=== PATIENT | male | born 1965 | race Caucasian/White ===

== ENCOUNTER 2016-03-09 14:06 | Emergency (ER) | payer SELFPAY ==
--- NOTE | 2016-03-09 14:22 | ER Document Report ---
ED Medical Screen (RME) - General Stated Complaint: LOW BACK PAIN, NECK PAIN Mode of Arrival: Ambulatory Information source: Patient Notes: Patient presents to the emergency department with complete back pain for the past 4 days with his feet tingling. Denies urinary or bowel incontinence or retention. He reports his back hurts on and off. Denies injury, denies heavy lifting. Patient was buzz Medeiros. I have greeted and performed a rapid initial assessment of this patient. A comprehensive ED assessment and evaluation of the patient, analysis of test results and completion of the medical decision making process will be conducted by additional ED providers. TRAVEL OUTSIDE OF THE [place] IN LAST 30 DAYS: No - Related Data Allergies/Adverse Reactions: Penicillins Allergy (Verified 09/22/15 10:11) Past Medical History - Past Medical History Cardiac Medical History: Reports: Hx Heart Attack - X4, Hx Hypercholesterolemia , Hx Hypertension Past Surgical History: Reports: Hx Cardiac Surgery - stents X 10 - Immunizations Immunizations up to date: No Hx Diphtheria, Pertussis, Tetanus Vaccination: No Physical Exam - Vital signs Vitals: Temp Pulse Resp BP Pulse Ox 97.3 F 83 18 149/74 H 99 03/09/16 14:16 03/09/16 14:16 03/09/16 14:16 03/09/16 14:16 03/09/16 14:16 Course - Vital Signs Vital signs: Temp Pulse Resp BP Pulse Ox 97.3 F 83 18 149/74 H 99 03/09/16 14:16 03/09/16 14:16 03/09/16 14:16 03/09/16 14:16 03/09/16 14:16
--- NOTE | 2016-03-09 15:07 | ER Document Report ---
HPI - HPI Patient complains to provider of: low back pain Onset: Other - chronic but worse for a few days Onset/Duration: Gradual Quality of pain: Throbbing Pain Level: 5 Context: 50 yo male with chronic back pain is c/o worsening midline low back pain and now midline cervical neck pain, worse with movement. He is also c/o tingling to the soles of both feet and cold left hand. No fever or chills. No injury. No saddle anesthesia. No hx diabetes or neurological disease. No headache. Hx coronary stents, no chest pain or SOB, no surgical procedure in left arm. Associated Symptoms: None Exacerbated by: Movement Relieved by: Denies Similar symptoms previously: Yes Recently seen / treated by doctor: No - ROS ROS below otherwise negative: Yes Systems Reviewed and Negative: Yes All other systems reviewed and negative - DERM Skin Color: Normal Past Medical History - General Information source: Patient - Social History Smoking Status: Current Every Day Smoker Chew tobacco use (# tins/day): No Frequency of alcohol use: None Drug Abuse: None Lives with: Spouse/Significant other Family History: Reviewed & Not Pertinent Patient has suicidal ideation: No Patient has homicidal ideation: No - Past Medical History Cardiac Medical History: Reports: Hx Heart Attack - X4, Hx Hypercholesterolemia , Hx Hypertension Past Surgical History: Reports: Hx Cardiac Surgery - stents X 10 - Immunizations Immunizations up to date: No Hx Diphtheria, Pertussis, Tetanus Vaccination: No Vertical Provider Document - CONSTITUTIONAL Agree With Documented VS: Yes Exam Limitations: No Limitations General Appearance: No Apparent Distress - INFECTION CONTROL TRAVEL OUTSIDE OF THE [place] IN LAST 30 DAYS: No - HEENT HEENT: Normocephalic - NECK Neck: Supple. negative: Lymphadenopathy-Left, Lymphadenopathy-Right - RESPIRATORY Respiratory: Breath Sounds Normal, No Respiratory Distress O2 Sat by Pulse Oximetry: 99 - CARDIOVASCULAR Cardiovascular: Regular Rate, Regular Rhythm - GI/ABDOMEN Gastrointestinal: Abdomen Soft, Abdomen Non-Tender - BACK Back: Normal Inspection Notes: tender midline lumbar spine and lower cervical spine. - MUSCULOSKELETAL/EXTREMETIES Musculoskeletal/Extremeties: MAEW, FROM, Non-Tender, No Edema Notes: left hand is cooler than right, dorsal left foot is cooler than right. Cap refill, pulses, and strength are all normal bilateral arms,hands, legs, feet. - NEURO Level of Consciousness: Awake, Alert Motor/Sensory: No Motor Deficit, No Sensory Deficit - DERM Integumentary: Warm, Dry, No Rash Course - Re-evaluation Re-evalutation: 03/09/16 16:00 dr valenzuela evaluated the pt., add chest xray to the labs I ordered. No other testing needed. have pt follow up with dr francisco tomorrow 03/09/16 17:[address] valenzuela, pt ok to be discharged and f/u with dr francisco tomorrow. - Vital Signs Vital signs: Temp Pulse Resp BP Pulse Ox 97.3 F 83 18 149/74 H 99 03/09/16 14:16 03/09/16 14:16 03/09/16 14:16 03/09/16 14:16 03/09/16 14:16 - Laboratory Result Diagrams: 03/09/16 16:35 03/09/16 16:35 Discharge - Discharge Clinical Impression: Neck pain, parathesia, left hand and left foot coolness Chronic low back pain Qualifiers: Back pain laterality: midline Sciatica presence: without sciatica Qualified Code(s): M54.5 - Low back pain Condition: Good Disposition: HOME, SELF-CARE Instructions: Warm Packs ([facility]), Low Back Pain ([facility]), Numbness or Paresthesia ( [facility]), Acetaminophen, Use of [id number] Ibuprofen ([facility]) Additional Instructions: warm compress to sore areas Prescriptions: Ibuprofen [Motrin 800 mg Tablet] 800 mg PO Q8HP PRN #30 tablet PRN Reason: Forms: Return to Work Referrals: LIANNA TRAN MD [NO LOCAL MD] - Follow up tomorrow
[2016-03-09 17:02] LABS: ABSOLUTE BASOPHILS # (AUTO) 0.1 10^3/uL (0.0-0.2); ABSOLUTE EOSINOPHILS # (AUTO) 0.3 10^3/uL (0.0-0.6); ABSOLUTE LYMPHOCYTES (AUTO) 3.5 10^3/uL (0.5-4.7); ABSOLUTE MONOCYTES (AUTO) 0.9 10^3/uL (0.1-1.4); ABSOLUTE NEUT (AUTO) 6.6 10^3/uL (1.7-8.2); BASOPHILS % (AUTO) 1.2 % (0-2); EOSINOPHILS % (AUTO) 2.7 % (0-6); HEMATOCRIT 47.5 % (37.9-51.0); HEMOGLOBIN 15.2 g/dL (13.5-17.0); HGB HCT DIFFERENCE -1.9; LYMPHOCYTES % (AUTO) 30.4 % (13-45); MEAN CORPUSCULAR HEMOGLOBIN 29.6 pg (27.0-33.4); MEAN CORPUSCULAR VOLUME 92 fl (80-97); RED BLOOD COUNT 5.14 10^6/uL (4.35-5.55); RED CELL DISTRIBUTION WIDTH 13.2 % (11.5-14.0); SEGMENTED NEUTROPHILS % (AUTO) 57.7 % (42-78); WHITE BLOOD COUNT 11.5 10^3/uL (4.0-10.5)
[2016-03-09 17:21] LABS: ALANINE AMINOTRANSFERASE 27 U/L (21-72); ALKALINE PHOSPHATASE 56 U/L (38-126); ANION GAP 9 (5-19); ASPARTATE AMINO TRANSFERASE 17 U/L (17-59); BILIRUBIN,TOTAL 0.5 mg/dL (0.2-1.3); BLOOD UREA NITROGEN 14 mg/dL (7-20); CALCIUM 10.2 mg/dL (8.4-10.2); CARBON DIOXIDE 32 mmol/L (22-30); CHLORIDE 104 mmol/L (98-107); CREATININE RESULT 1.16 mg/dL (0.52-1.25); GLUCOSE 52 mg/dL (75-110); POTASSIUM 4.6 mmol/L (3.6-5.0); SODIUM 144.8 mmol/L (137-145)
--- NOTE | 2016-03-09 17:28 | ER Document Report ---
Doctor's Note Notes: 03/09/16 17:26 The patient independently seen and examined by myself. DECISION made by staff. [id number] male presented low back pain intermittently for months for the past 2 days as also had posterior neck pain and this morning noted a coolness to his left hand. Mid-level provider also identified coolness in the patient's left foot which patient was unaware of. 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 Reports history of multiple cardiac stents but denies any chest pain short of breath diaphoresis or nausea recently. Skin warm and dry Patient he knows of atraumatic Neck supple trachea midline no adenopathy no nuchal rigidity no bony deformities palpated Chest nontender to palpation Extremities have 2+ pulses radial process pedis posterior tibial bilaterally. He has 2 second capillary refill all 4 extremities. There is a minimal decrease in temperature diffusely involving the left hand compared to the right and I do not appreciate any difference in temperatures in the feet. He has no Homans sign bilaterally he has no edema to any extremity. Chemistries all active range of motion all joints without apparent discomfort. Range of motion testing the left upper extremity does not produce any pain or worsen the patient 's sensation of coolness in his hand.
[2016-03-09] MEDS ORDERED: ACETAMINOPHEN 325 MG TABLET PO ONE (17:32)
[2016-03-09] MEDS ORDERED: IBUPROFEN 800 MG TABLET PO ONE (17:32)
[2016-03-09 18:36] VITALS: BP 164/88
== END 2016-03-09 18:10 | disposition home or self-care (01) ==
LOC: ER 14:06
DX: M54.2 Cervicalgia (principal); R22.0 Localized swelling, mass and lump, head; M54.5 Low back pain; F17.210 Nicotine dependence, cigarettes, uncomplicated
CPT/HCPCS: 36415; 71020; 80053; 85025; 99283

== ENCOUNTER 2016-06-24 13:47 | Observation (INO) | payer SELFPAY ==
[2016-06-24] MEDS ORDERED: ASPIRIN 81 MG TABLET, CHEWABLE PO ONE (13:50)
--- NOTE | 2016-06-24 14:18 | ER Document Report ---
ED Medical Screen (RME) - General Chief Complaint: Chest Pain Stated Complaint: CHEST PAIN, ELEVATED BLOOD PRESSURE Notes: Patient presents with left-sided chest pain that has been present for the past 5 hours. Patient has a long-standing history of known cardiac disease with 10 stents in the past as well as for known MIs. He continues to have left-sided chest pain at this time. No radiation to pain. No associated diaphoresis, nausea, vomiting or shortness of breath. No history of DVT or pulmonary embolus. EKG obtained in triage does not show any acute ST elevation. I have greeted and performed a rapid initial assessment of this patient. A comprehensive ED assessment and evaluation of the patient, analysis of test results and completion of medical decision making process will be conducted by an additional ED providers. TRAVEL OUTSIDE OF THE [place] IN LAST 30 DAYS: No - Related Data Allergies/Adverse Reactions: Penicillins Allergy (Verified 06/24/16 14:16) Past Medical History - Past Medical History Cardiac Medical History: Reports: Hx Heart Attack - X4, Hx Hypercholesterolemia , Hx Hypertension Renal/ Medical History: Denies: Hx Peritoneal Dialysis Past Surgical History: Reports: Hx Cardiac Surgery - stents X 10 - Immunizations Immunizations up to date: No Hx Diphtheria, Pertussis, Tetanus Vaccination: No Physical Exam - Vital signs Notes: PHYSICAL EXAMINATION: GENERAL: Well-appearing, well-nourished and in no acute distress. HEAD: Atraumatic, normocephalic. EYES: Pupils equal round and reactive to light, extraocular movements intact, sclera anicteric, conjunctiva are normal. ENT: nares patent, oropharynx clear without exudates. Moist mucous membranes. NECK: Normal range of motion, supple without lymphadenopathy LUNGS: Breath sounds clear to auscultation bilaterally and equal. No wheezes rales or rhonchi. HEART: Regular rate and rhythm without murmurs ABDOMEN: Soft, nontender, normoactive bowel sounds. No guarding, no rebound. No masses appreciated. EXTREMITIES: Normal range of motion, no pitting or edema. No cyanosis. NEUROLOGICAL: No focal neurological deficits. Moves all extremities spontaneously and on command. PSYCH: Normal mood, normal affect. SKIN: Warm, Dry, normal turgor, no rashes or lesions noted.
[2016-06-24 14:54] LABS: ABSOLUTE BASOPHILS # (AUTO) 0.1 10^3/uL (0.0-0.2); ABSOLUTE EOSINOPHILS # (AUTO) 0.4 10^3/uL (0.0-0.6); ABSOLUTE LYMPHOCYTES (AUTO) 3.6 10^3/uL (0.5-4.7); ABSOLUTE MONOCYTES (AUTO) 0.7 10^3/uL (0.1-1.4); ABSOLUTE NEUT (AUTO) 6.9 10^3/uL (1.7-8.2); BASOPHILS % (AUTO) 0.9 % (0-2); EOSINOPHILS % (AUTO) 3.4 % (0-6); HEMATOCRIT 45.3 % (37.9-51.0); HEMOGLOBIN 15.1 g/dL (13.5-17.0); LYMPHOCYTES % (AUTO) 30.9 % (13-45); MEAN CORPUSCULAR HEMOGLOBIN 29.8 pg (27.0-33.4); MEAN CORPUSCULAR HGB CONC 33.3 g/dL (32.0-36.0); MEAN CORPUSCULAR VOLUME 90 fl (80-97); MONOCYTES % (AUTO) 5.6 % (3-13); RED BLOOD COUNT 5.05 10^6/uL (4.35-5.55); SEGMENTED NEUTROPHILS % (AUTO) 59.2 % (42-78); WHITE BLOOD COUNT 11.7 10^3/uL (4.0-10.5)
[2016-06-24] MEDS ORDERED: ACETAMINOPHEN 325 MG TABLET PO ONE (14:56)
--- NOTE | 2016-06-24 15:04 | ER Document Report ---
ED General - General Chief Complaint: Chest Pain Stated Complaint: CHEST PAIN, ELEVATED BLOOD PRESSURE Time seen by provider: 14:59 Mode of Arrival: Ambulatory Information source: Patient Notes: 50-year-old male who reports left lower chest pressure nonradiating beginning at rest about 9:00 this morning. He also had a sensation of his face feeling swollen and flushed which she says is typical for his blood pressure running high. He went to see his pharmacist and says his blood pressure was 199 of 119 and he was told that person come to the emergency department. He reports a history of 4 MIs and she'll obtain cardiac stents and he says the chest discomfort he has now is typical 40s had in the past with heart problems. He reports some associated shortness of breath but denies diaphoresis or vomiting. He reports he had some nausea with the chest discomfort briefly this morning without is not resolved. He reports chest pain and is worse with 4 out of 10 and currently is 2 out of 10. Patient reports he has not had any type of cardiac workup since his last CT in 2011 and is intermittently had twinges of chest discomfort since then but not as bad as when is having now he doesn't think his prior episodes of chest pain becoming more frequently. He reports his prior cardiac workup and cares been at [facility] and he has not seen anybody in 5 years for his heart. He also reports history of atrial fibrillation for which she takes amiodarone. Primary care physician is Dr. Ritesh Lofton. He reports he has been in his normal state of health otherwise recently Physical Exam: General: Alert, appears well. HEENT: Normocephalic. Atraumatic. PERRLA. Extraocular movements intact. Oropharynx clear. Neck: Supple. Non-tender. Respiratory: No respiratory distress. Clear and equal breath sounds bilaterally. The patient does not reproduce patient's pain Cardiovascular: Regular rate and rhythm. No murmur or rub Abdominal: Normal Inspection. Soft, non-tender. No distension. Normal Bowel Sounds. Back: Non-tender. No deformity or step off. Extremities all warm to plus pulses of cyanosis no edema no Homans sign Neurological: Speech clear mentation normal tint layer strength 5 out of 5 and equal both upper extremities motor function 5 out of 5 and equal to both lower extremities Psychological: Normal affect. Normal Mood. Skin: Warm. Dry. Normal color. TRAVEL OUTSIDE OF THE [place] IN LAST 30 DAYS: No - Related Data Allergies/Adverse Reactions: Penicillins Allergy (Verified 06/24/16 14:16) Past Medical History - Social History Smoking Status: Current Every Day Smoker Frequency of alcohol use: None Family History: CAD - Multiple family members with early onset coronary disease Patient has suicidal ideation: No Patient has homicidal ideation: No - Past Medical History Cardiac Medical History: Reports: Hx Heart Attack - X4, Hx Hypercholesterolemia , Hx Hypertension Renal/ Medical History: Denies: Hx Peritoneal Dialysis Past Surgical History: Reports: Hx Cardiac Surgery - stents X 10 - Immunizations Immunizations up to date: No Hx Diphtheria, Pertussis, Tetanus Vaccination: No Review of Systems - Review of Systems Constitutional: denies: Chills, Fever, Weakness EENT: denies: Ear pain, Nose pain, Throat pain Cardiovascular: See HPI. denies: Palpitations Respiratory: denies: Cough Gastrointestinal: denies: Abdominal pain, Diarrhea, Vomiting, Blood in vomit, Black stools, Rectal bleeding Genitourinary: denies: Burning, Dysuria Musculoskeletal: Back pain - Chronic not worse than baseline. denies: Leg swelling Skin: denies: Rash Hematologic/Lymphatic: denies: Swollen glands Neurological/Psychological: denies: Weakness, Numbness Physical Exam - Vital signs Vitals: Temp Pulse Resp BP Pulse Ox 98 F 77 20 163/98 H 93 06/24/16 14:17 06/24/16 14:17 06/24/16 14:17 06/24/16 14:17 06/24/16 14:17 Course - Re-evaluation Re-evalutation: 06/24/16 15:42 Reevaluation shows patient to be pain free after 2 sublingual nitroglycerin with a markedly improved blood pressure. Given the patient's report of worsening chest pain recently think this warrants at a minimum stress testing in the inpatient setting. I discussed case with Dr. Haque of the hospitalist service and he accepts the patient for admission - Vital Signs Vital signs: Temp Pulse Resp BP Pulse Ox 98 F 77 20 163/98 H 100 06/24/16 14:17 06/24/16 14:17 06/24/16 14:17 06/24/16 14:17 06/24/16 15:10 - Laboratory Result Diagrams: 06/24/16 14:25 06/24/16 14:25 Laboratory results interpreted by me: 06/24/16 14:25 WBC 11.7 H - Diagnostic Test Radiology reviewed: Image reviewed, Reports reviewed - EKG Interpretation by Me Additional EKG results interpreted by me: 06/24/16 15:03 EKG reviewed by myself shows sinus rhythm at 72 old Q waves consistent with old inferior CT no acute changes Discharge - Discharge Clinical Impression: Acute coronary syndrome Condition: Fair Disposition: ADMITTED OBSERVATION Admitting Provider: Hospitalist Unit Admitted: Telemetry
[2016-06-24] MEDS: NITROGLYCERIN 0.4 MG/TAB 25 TAB/BOTTLE SL PRN ×2 (15:07→15:17)
[2016-06-24 15:14] LABS: ALANINE AMINOTRANSFERASE 32 U/L (21-72); ALBUMIN 4.3 g/dL (3.5-5.0); ALKALINE PHOSPHATASE 60 U/L (38-126); ANION GAP 13 (5-19); ASPARTATE AMINO TRANSFERASE 18 U/L (17-59); BILIRUBIN,DIRECT 0.3 mg/dL (0.0-0.4); BILIRUBIN,TOTAL 0.4 mg/dL (0.2-1.3); BLOOD UREA NITROGEN 14 mg/dL (7-20); CALCIUM 9.9 mg/dL (8.4-10.2); CARBON DIOXIDE 26 mmol/L (22-30); CHLORIDE 105 mmol/L (98-107); CREATINE KINASE 103 U/L (55-170); CREATININE RESULT 1.13 mg/dL (0.52-1.25); GLUCOSE 91 mg/dL (75-110); LIPASE 161.5 U/L (23-300); POTASSIUM 4.1 mmol/L (3.6-5.0); SODIUM 143.7 mmol/L (137-145); TOTAL PROTEIN 7.3 g/dL (6.3-8.2)
[2016-06-24 15:28] LABS: TROPONIN I < 0.012 ng/mL
[2016-06-24] MEDS ORDERED: ACETAMINOPHEN 325 MG TABLET PO PRN (16:11)
--- NOTE | 2016-06-24 16:25 | PDOC H&P ---
History of Present Illness Admission Date/PCP: Date of admission is 06/24/2016. Primary care is Dr. Quiroga Patient complains of: Chest pain History of Present Illness: DILIP TAVAREZ is a 50 year old male with known history of coronary artery disease with multiple stent placement who presents with a 2 day history of chest pain. He reports that he began having chest pain 2 days ago and reported that it was about 4 out of 10. Spent intermittent in nature and occurs with exertion and at rest. He went to the pharmacist today and was found to have a blood pressure 199/19. He was instructed to come to the emergency room. He was given nitroglycerin in the merchant with relief of his chest pain. The patient is currently pain-free. He reports that initially was 4 out of 10 and now is 0 out of 10. He did not have any associated nausea vomiting or diaphoresis. Denies any palpitations or tachycardia. He describes the pain as a pressure in the left substernal area. It does not radiate. He denies any orthopnea or PND. Denies any palpitations or tachycardia but does relate a history of atrial fibrillation. He reports that he has been compliant with his medications. Past Medical History Cardiac Medical History: Reports: Atrial Fibrillation, Myocardial Infarction - X4, Hyperlipidema, Hypertension Pulmonary Medical History: Reports: None EENT Medical History: Reports: None Neurological Medical History: Reports: None Endocrine Medical History: Reports: None Renal/ Medical History: Reports: None Malignancy Medical History: Reports: None GI Medical History: Reports: None Musculoskeltal Medical History: Reports: None Skin Medical History: Reports: None Psychiatric Medical History: Reports: None Traumatic Medical History: Reports: None Hematology: Reports: None Infectious Medical History: Reports: None Past Surgical History Past Surgical History: Reports: Cardiac Catheterization, Coronary Stent Social History Information Source: Patient Lives with: Spouse/Significant other Smoking Status: Current Every Day Smoker Frequency of Alcohol Use: None Hx Recreational Drug Use: No Drugs: None Hx Prescription Drug Abuse: No - Advance Directive Resuscitation Status: Full Code Surrogate healthcare decision maker:: Family History Family History: CAD - Multiple family members with early onset coronary disease Family History: Father at age 55 from coronary artery disease. Mother at age 62 with ovarian cancer but did have coronary artery disease also. Parental Family History Reviewed: Yes Children Family History Reviewed: No Sibling(s) Family History Reviewed.: No Medication/Allergy Allergies/Adverse Reactions: Penicillins Allergy (Verified 06/24/16 14:16) Review of Systems Constitutional: PRESENT: weight loss - Reports unintentional 25 pound weight loss of the last 6 months.. ABSENT: chills, fever(s), headache(s) Eyes: ABSENT: visual disturbances Ears: ABSENT: hearing changes Cardiovascular: PRESENT: as per HPI Respiratory: ABSENT: cough, hemoptysis Gastrointestinal: ABSENT: abdominal pain, constipation, diarrhea, hematemesis, hematochezia, nausea, vomiting Genitourinary: ABSENT: dysuria, hematuria Musculoskeletal: ABSENT: joint swelling Integumentary: ABSENT: rash, wounds Neurological: ABSENT: abnormal gait, abnormal speech, confusion, dizziness, focal weakness, syncope Psychiatric: ABSENT: anxiety, depression Endocrine: ABSENT: cold intolerance, heat intolerance, polydipsia, polyuria Hematologic/Lymphatic: ABSENT: easy bleeding, easy bruising Physical Exam Vital Signs: Temp Pulse Resp BP Pulse Ox 98 F 77 20 163/98 H 100 06/24/16 14:17 06/24/16 14:17 06/24/16 14:17 06/24/16 14:17 06/24/16 15:10 Intake & Output 06/23/16 06/24/16 06/25/16 06:59 06:59 06:59 Weight 76 kg General appearance: PRESENT: no acute distress, well-developed, well-nourished Head exam: PRESENT: atraumatic, normocephalic Eye exam: PRESENT: conjunctiva pink, EOMI, PERRLA. ABSENT: scleral icterus Ear exam: PRESENT: normal external ear exam Mouth exam: PRESENT: moist, tongue midline Neck exam: ABSENT: carotid bruit, JVD, lymphadenopathy, thyromegaly Respiratory exam: PRESENT: clear to auscultation jono. ABSENT: rales, rhonchi, wheezes Cardiovascular exam: PRESENT: RRR. ABSENT: diastolic murmur, rubs, systolic murmur Vascular exam: PRESENT: normal capillary refill GI/Abdominal exam: PRESENT: normal bowel sounds, soft. ABSENT: distended, guarding, mass, organolmegaly, rebound, tenderness Rectal exam: PRESENT: deferred Extremities exam: ABSENT: calf tenderness, clubbing, pedal edema Neurological exam: PRESENT: alert, awake, oriented to person, oriented to place , oriented to time, oriented to situation, CN II-XII grossly intact. ABSENT: motor sensory deficit Psychiatric exam: PRESENT: appropriate affect, normal mood Skin exam: PRESENT: dry, intact, warm, other - Large nevus on right anterior chest just below the clavicle approximately 2 inches in diameter. ABSENT: cyanosis, rash Results Laboratory Results: 06/24/16 14:25 06/24/16 14:25 06/24/16 06/24/16 14:25 14:25 WBC 11.7 H RBC 5.05 Hgb 15.1 Hct 45.3 MCV 90 MCH 29.8 MCHC 33.3 RDW 13.0 Plt Count 321 Seg Neutrophils % 59.2 Lymphocytes % 30.9 Monocytes % 5.6 Eosinophils % 3.4 Basophils % 0.9 Absolute Neutrophils 6.9 Absolute Lymphocytes 3.6 Absolute Monocytes 0.7 Absolute Eosinophils 0.4 Absolute Basophils 0.1 Sodium 143.7 Potassium 4.1 Chloride 105 Carbon Dioxide 26 Anion Gap 13 BUN 14 Creatinine 1.13 Est GFR ( Amer) > 60 Est GFR (Non-Af Amer) > 60 Glucose 91 Calcium 9.9 Magnesium 2.0 Total Bilirubin 0.4 AST 18 ALT 32 Alkaline Phosphatase 60 Total Protein 7.3 Albumin 4.3 Lipase 161.5 06/24/16 06/24/16 14:25 14:25 Creatine Kinase 103 CK-MB (CK-2) 0.40 Troponin I < 0.012 NT-Pro-B Natriuret Pep 100 Impressions: Chest X-Ray 06/24/16 13:50 IMPRESSION: NO ACUTE RADIOGRAPHIC FINDING IN THE CHEST. Assessment & Plan - Diagnosis (1) Acute coronary syndrome Is this a current diagnosis for this admission?: YesPlan: he presented with his usual type chest pain associated with his coronary artery disease. He has not seen a health outreach worker in over 2 years. We will admit and monitor serial cardiac enzymes. If his enzymes are negative we will Get an exercise stress test. We'll continue with aspirin daily. He also is on Imdur. (2) Hypertension Is this a current diagnosis for this admission?: YesPlan: Continue with the Coreg and lisinopril and Lasix. (3) Atrial fibrillation Is this a current diagnosis for this admission?: YesPlan: The patient is on amiodarone and is in a regular rhythm currently. (4) Restless leg syndrome Is this a current diagnosis for this admission?: YesPlan: Continue the gabapentin daily at bedtime - Time Time Spent: 50 to 70 Minutes - Plan Summary Plan Summary: Patient is admitted as an observation.
[2016-06-24] MEDS ORDERED: NITROGLYCERIN 0.4 MG/TAB 25 TAB/BOTTLE SL PRN (16:30)
[2016-06-24] MEDS ORDERED: GABAPENTIN 300 MG CAPSULE PO ONE (17:00)
--- NOTE | 2016-06-24 19:08 | EKG REPORT ---
SEVERITY:- ABNORMAL ECG - SINUS RHYTHM NONSPECIFIC INTRAVENTRICULAR CONDUCTION DELAY INFERIOR INFARCT, AGE INDETERMINATE : Confirmed by: Oliver Miller MD 24-Jun-2016 19:07:14
[2016-06-24 21:09] LABS: CREATINE KINASE MB 0.41 ng/mL (<4.55)
[2016-06-24 21:14] LABS: TROPONIN I < 0.012 ng/mL
[2016-06-24] MEDS ORDERED: CARVEDILOL 6.25 MG TABLET PO SCH (22:00)
[2016-06-25 03:16] LABS: CREATINE KINASE MB 0.41 ng/mL (<4.55)
[2016-06-25 03:17] LABS: TROPONIN I < 0.012 ng/mL
[2016-06-25 07:57] VITALS: BP 148/90
[2016-06-25] MEDS ORDERED: AMIODARONE HCL 200 MG TABLET PO SCH (10:00)
[2016-06-25] MEDS ORDERED: GABAPENTIN 300 MG CAPSULE PO SCH (10:00)
[2016-06-25] MEDS ORDERED: ASPIRIN 325 MG TABLET, ENT COATED PO SCH (10:00)
[2016-06-25] MEDS ORDERED: LISINOPRIL 10 MG TABLET PO SCH (10:00)
[2016-06-25] MEDS ORDERED: ISOSORBIDE MONONITRATE 30 MG TAB.ER.24H PO SCH (10:00)
[2016-06-25] MEDS ORDERED: FUROSEMIDE 20 MG TABLET PO SCH (10:00)
--- NOTE | 2016-06-25 10:23 | PDOC DISCHARGE SUMMARY ---
General - Admit/Disc Date/PCP Admission Date/Primary Care Provider: 06/24/16 16:11 Discharge Date: 06/25/16 - Discharge Diagnosis (1) Acute coronary syndrome Is this a current diagnosis for this admission?: YesSummary: Patient had negative troponins and has had no further chest pain. It is Monday and we are unable to give a stress test today. Patient follow-up with Dr. Ayala as an outpatient and have a stress test set up. Patient will increase his Imdur to twice a day 30 mg. (2) Hypertension Is this a current diagnosis for this admission?: Yes (3) Atrial fibrillation Is this a current diagnosis for this admission?: Yes (4) Restless leg syndrome Is this a current diagnosis for this admission?: Yes - Additional Information Resuscitation Status: Full Code Discharge Diet: Cardiac Discharge Activity: Activity As Tolerated Home Medications: Amiodarone HCl [Cordarone 200 mg Tablet] 200 mg PO DAILY 06/24/16 Aspirin [Ecotrin 325 mg EC Tablet] 325 mg PO DAILY 06/24/16 Carvedilol [Coreg 6.25 mg Tablet] 6.25 mg PO Q12 06/24/16 Furosemide [Lasix] 20 mg PO DAILY 06/24/16 Gabapentin [Neurontin 300 mg Capsule] 600 mg PO QPM 06/24/16 Lisinopril [Prinivil] 40 mg PO DAILY 06/24/16 Isosorbide Mononitrate [Isosorbide Mononitrate ER] 30 mg PO BID #60 tab.er.24h 06/25/16 Nitroglycerin [Nitrostat 0.4 mg (1/150 Gr) Tabs 25/Bottle] 1 tab SL ASDIR PRN # 1 bottle 06/25/16 History of Present Illness History of Present Illness: DILIP TAVAREZ is a 50 year old male with known history of coronary artery disease with multiple stent placement who presents with a 2 day history of chest pain. He reports that he began having chest pain 2 days ago and reported that it was about 4 out of 10. Spent intermittent in nature and occurs with exertion and at rest. He went to the pharmacist today and was found to have a blood pressure 199/19. He was instructed to come to the emergency room. He was given nitroglycerin in the merchant with relief of his chest pain. The patient is currently pain-free. He reports that initially was 4 out of 10 and now is 0 out of 10. He did not have any associated nausea vomiting or diaphoresis. Denies any palpitations or tachycardia. He describes the pain as a pressure in the left substernal area. It does not radiate. He denies any orthopnea or PND. Denies any palpitations or tachycardia but does relate a history of atrial fibrillation. He reports that he has been compliant with his medications. Hospital Course Hospital Course: 42-year-old gentleman who presented with chest pain. Patient was monitored on telemetry had no cardiac arrhythmias and had negative cardiac enzymes. It's the weekend and we are unable to do a stress test. He is instructed to increase his Imdur to 30 mg twice a day and will have him set up an outpatient stress test and follow-up with Dr. Mar of cardiology in 1 week. Physical Exam Vital Signs: Temp Pulse Resp BP Pulse Ox 98.0 F 60 17 148/90 H 98 06/25/16 08:36 06/25/16 08:36 06/25/16 08:36 06/25/16 08:36 06/25/16 08:36 Intake & Output 06/24/16 06/25/16 06/26/16 06:59 06:59 06:59 Intake Total 591 Balance 591 Weight 73.8 kg General appearance: PRESENT: no acute distress, well-developed, well-nourished Head exam: PRESENT: atraumatic, normocephalic Eye exam: PRESENT: conjunctiva pink, EOMI, PERRLA. ABSENT: scleral icterus Mouth exam: PRESENT: moist, tongue midline Neck exam: ABSENT: carotid bruit, JVD, lymphadenopathy, thyromegaly Respiratory exam: PRESENT: clear to auscultation jono. ABSENT: rales, rhonchi, wheezes Cardiovascular exam: PRESENT: RRR. ABSENT: diastolic murmur, rubs, systolic murmur GI/Abdominal exam: PRESENT: normal bowel sounds, soft. ABSENT: distended, guarding, mass, organolmegaly, rebound, tenderness Extremities exam: ABSENT: calf tenderness, clubbing, pedal edema Neurological exam: PRESENT: alert, awake, oriented to person, oriented to place , oriented to time, oriented to situation, CN II-XII grossly intact. ABSENT: motor sensory deficit Psychiatric exam: PRESENT: appropriate affect Skin exam: PRESENT: dry, intact, warm. ABSENT: cyanosis, rash Results Laboratory Results: 06/24/16 06/24/16 06/25/16 20:28 20:28 02:36 Creatine Kinase 80 86 CK-MB (CK-2) 0.41 Troponin I < 0.012 06/25/16 02:36 Creatine Kinase CK-MB (CK-2) 0.41 Troponin I < 0.012 Impressions: Chest X-Ray 06/24/16 13:50 IMPRESSION: NO ACUTE RADIOGRAPHIC FINDING IN THE CHEST. Qualifiers PATEINT BEING DISCHARGED WITH ANY OF THE FOLLOWING DIAGNOSIS?: No Plan Discharge Plan: Patient is discharged home in stable condition. He will follow-up for a stress test and Cardiolite appointment this week. He is instructed to avoid any exertion until seen by cardiology and to return to emergency room if he has further chest pain. Time Spent: Less than 30 Minutes
== END 2016-06-25 09:20 | disposition home or self-care (01) ==
LOC: ER 13:47 → EH 16:11 → UNDOADMOB 16:14 → 5 23:45
PROVIDERS: ADMIT Internal Medicine; ATTEND Internal Medicine
DX: I24.9 Acute ischemic heart disease, unspecified (principal); I10 Essential (primary) hypertension; I48.91 Unspecified atrial fibrillation; G25.81 Restless legs syndrome; F17.200 Nicotine dependence, unspecified, uncomplicated; R63.4 Abnormal weight loss; D22.5 Melanocytic nevi of trunk; G89.29 Other chronic pain; M54.9 Dorsalgia, unspecified; I25.2 Old myocardial infarction; Z79.899 Other long term (current) drug therapy; Z79.82 Long term (current) use of aspirin; Z95.5 Presence of coronary angioplasty implant and graft; Z82.49 Family history of ischemic heart disease and other diseases of the circulatory system; Z68.26 Body mass index [BMI] 26.0-26.9, adult
CPT/HCPCS: 93005; 99285; 36415; 82553 ×2; 82550 ×2; 83690; 83735; 85025; 80053; 84484 ×2; 83880; 71010; 93010; G0378 ×2; J3490

== ENCOUNTER 2017-04-20 11:34 | Inpatient (IN) | payer SELFPAY ==
[2017-04-20] MEDS ORDERED: ASPIRIN 81 MG TABLET, CHEWABLE PO ONE (11:52)
[2017-04-20 12:13] LABS: ABSOLUTE BASOPHILS # (AUTO) 0.1 10^3/uL (0.0-0.2); ABSOLUTE EOSINOPHILS # (AUTO) 0.1 10^3/uL (0.0-0.6); ABSOLUTE MONOCYTES (AUTO) 0.7 10^3/uL (0.1-1.4); ABSOLUTE NEUT (AUTO) 7.1 10^3/uL (1.7-8.2); EOSINOPHILS % (AUTO) 0.7 % (0-6); HEMATOCRIT 46.7 % (37.9-51.0); HEMOGLOBIN 16.2 g/dL (13.5-17.0); MEAN CORPUSCULAR HEMOGLOBIN 30.5 pg (27.0-33.4); MEAN CORPUSCULAR HGB CONC 34.6 g/dL (32.0-36.0); MEAN CORPUSCULAR VOLUME 88 fl (80-97); PLATELET COUNT 323 10^3/uL (150-450); RED CELL DISTRIBUTION WIDTH 13.4 % (11.5-14.0); SEGMENTED NEUTROPHILS % (AUTO) 65.3 % (42-78); TOTAL CELLS COUNTED % (AUTO) 100 %; WHITE BLOOD COUNT 10.9 10^3/uL (4.0-10.5)
[2017-04-20 12:31] LABS: ALANINE AMINOTRANSFERASE 27 U/L (21-72); ALBUMIN 4.4 g/dL (3.5-5.0); ALKALINE PHOSPHATASE 59 U/L (38-126); ANION GAP 10 (5-19); ASPARTATE AMINO TRANSFERASE 19 U/L (17-59); BILIRUBIN,DIRECT 0.4 mg/dL (0.0-0.4); BILIRUBIN,TOTAL 0.6 mg/dL (0.2-1.3); BLOOD UREA NITROGEN 10 mg/dL (7-20); CALCIUM 10.1 mg/dL (8.4-10.2); CARBON DIOXIDE 22 mmol/L (22-30); CHLORIDE 109 mmol/L (98-107); CREATINE KINASE 115 U/L (55-170); GLUCOSE 85 mg/dL (75-110); POTASSIUM 4.1 mmol/L (3.6-5.0); SODIUM 141.1 mmol/L (137-145); TOTAL PROTEIN 7.6 g/dL (6.3-8.2)
[2017-04-20] MEDS ORDERED: NITROGLYCERIN 2% OINTMENT 1 GM PACKET TP ONE (12:38)
[2017-04-20 12:43] LABS: CREATINE KINASE MB 0.86 ng/mL (<4.55)
[2017-04-20 12:45] LABS: TROPONIN I 0.039 ng/mL
--- NOTE | 2017-04-20 12:47 | RADIOLOGY REPORT (SQ) ---
EXAM DESCRIPTION: CHEST SINGLE VIEW COMPLETED DATE/TIME: 04/20/2017 12:16 pm REASON FOR STUDY: bed t1 cp COMPARISON: June 2016 EXAM PARAMETERS: NUMBER OF VIEWS: One view. TECHNIQUE: Single frontal radiographic view of the chest acquired. RADIATION DOSE: NA LIMITATIONS: None. FINDINGS: LUNGS AND PLEURA: No opacities, masses or pneumothorax. No pleural effusion. MEDIASTINUM AND HILAR STRUCTURES: No masses. Contour normal. HEART AND VASCULAR STRUCTURES: Heart normal in size. Normal vasculature. BONES: No acute findings. HARDWARE: None in the chest. OTHER: No other significant finding. IMPRESSION: NO ACUTE RADIOGRAPHIC FINDING IN THE CHEST. TECHNICAL DOCUMENTATION: JOB ID: [id number] GLG- All Rights Reserved [place] location - IP/workstation name: [email or web address]
--- NOTE | 2017-04-20 13:03 | EKG REPORT ---
SEVERITY:- ABNORMAL ECG - SINUS RHYTHM VENTRICULAR BIGEMINY PROBABLE LEFT ATRIAL ABNORMALITY PROBABLE INFERIOR INFARCT, AGE INDETERMINATE PROLONGED QT INTERVAL : Confirmed by: Oliver Miller MD 20-Apr-2017 13:02:11
[2017-04-20] MEDS ORDERED: HEPARIN SODIUM,PORCINE/D5W 25,000 UNIT/250 ML RTUINJ IV PRN (13:33)
[2017-04-20] MEDS ORDERED: HEPARIN SOD (PORCINE) 1,000 UNIT/ML 10 ML VIAL IV ONE (13:33)
--- NOTE | 2017-04-20 13:35 | ER Document Report ---
ED Cardiac - General Chief Complaint: Chest Pain Stated Complaint: CHEST PAIN Time Seen by Provider: 04/20/17 12:37 Notes: 51-year-old male history of coronary artery disease. History of 5 previous heart attacks in 10 stents. Began having chest pain last night. Chest pain continues today. Located in the center of his chest. Migrates to the left side of his chest. No nausea or vomiting at this time. Sometimes radiates to his back. Had a history of questionable AAA but denies any abdominal pain at this time. Does smoke. TRAVEL OUTSIDE OF THE [place] IN LAST 30 DAYS: No - HPI Patient complains to provider of: Chest pain Use of: denies: Alcohol, Amphetamines, Bath salts, Caffeine, Cocaine, Decongestants, Other Was the onset of pain: Sudden Chest pain location: Substernal Quality of pain: Intermittent Chest pain radiation location: Left arm Severity at worst: Moderate Pain level currently: 3 Cardiac risk factors: Hypertension, Smoker, + Family history, Dyslipidemia, Hx [place] Positive cardiac history: Yes Associated symptoms: None Exacerbated by: Denies Relieved by: Nothing - Related Data Allergies/Adverse Reactions: Penicillins Allergy (Verified 06/24/16 14:16) Past Medical History - General Information source: Patient - Social History Smoking Status: Current Some Day Smoker Cigarette use (# per day): Yes Chew tobacco use (# tins/day): No Smoking Education Provided: Yes Frequency of alcohol use: None Drug Abuse: None Lives with: Family Family History: CAD - Multiple family members with early onset coronary disease Patient has suicidal ideation: No Patient has homicidal ideation: No - Past Medical History Cardiac Medical History: Reports: Hx Atrial Fibrillation, Hx Congestive Heart Failure, Hx Heart Attack, Hx Hypercholesterolemia, Hx Hypertension Pulmonary Medical History: Denies: Hx Asthma, Hx Bronchitis, Hx COPD, Hx Pneumonia, Hx Tuberculosis Neurological Medical History: Denies: Hx Seizures Renal/ Medical History: Denies: Hx Benign Prostatic Hyperplasia, Hx End Stage Renal Disease, Hx Kidney Stones, Hx Peritoneal Dialysis GI Medical History: Denies: Hx Cirrhosis, Hx Gastroesophageal Reflux Disease, Hx Ulcer Musculoskeltal Medical History: Denies Hx Arthritis, Denies Hx Multiple Sclerosis Psychiatric Medical History: Denies: Hx Bipolar Disorder, Hx Depression, Hx Schizophrenia Past Surgical History: Reports: Hx Cardiac Catheterization, Hx Cardiac Surgery - stents X 10, Hx Coronary Stent - Immunizations Immunizations up to date: No Hx Diphtheria, Pertussis, Tetanus Vaccination: No Review of Systems - Review of Systems Constitutional: denies: Fever, Malaise, Weakness EENT: denies: Blurred vision, Throat pain, Difficulty swallowing, Mouth pain Cardiovascular: Chest pain. denies: Palpitations, Heart racing Respiratory: denies: Cough, Hurts to breathe, Short of breath, Wheezing Gastrointestinal: denies: Abdominal pain, Diarrhea, Nausea, Vomiting Genitourinary: denies: Burning, Frequency, Flank pain Musculoskeletal: denies: Back pain, Gout, Joint pain Skin: denies: Lesions, Lumps, Rash Hematologic/Lymphatic: denies: Anemia, Blood clots, Easy bleeding, Easy bruising Neurological/Psychological: denies: Confusion, Dementia, Depression, Anxiety, Weakness, Numbness Physical Exam - Vital signs Vitals: Temp Pulse Resp BP Pulse Ox 97.8 F 96 14 118/75 100 04/20/17 11:44 04/20/17 11:44 04/20/17 11:44 04/20/17 11:44 04/20/17 11:44 Interpretation: Normal - General General appearance: Appears well, Alert - HEENT Head: Normocephalic, Atraumatic Eyes: Normal Pupils: PERRL - Respiratory Respiratory status: No respiratory distress Chest status: Nontender Breath sounds: Normal Chest palpation: Normal - Cardiovascular Rhythm: Regular Heart sounds: Normal auscultation Murmur: No - Abdominal Inspection: Normal Distension: No distension Bowel sounds: Normal Tenderness: Nontender Organomegaly: No organomegaly - Back Back: Normal, Nontender - Extremities General upper extremity: Normal inspection, Nontender, Normal color, Normal ROM , Normal temperature General lower extremity: Normal inspection, Nontender, Normal color, Normal ROM , Normal temperature, Normal weight bearing. No: Сергей's sign - Neurological Neuro grossly intact: Yes Cognition: Normal Orientation: AAOx4 [place] Coma Scale Eye Opening: Spontaneous [place] Coma Scale Verbal: Oriented [place] Coma Scale Motor: Obeys Commands [place] Coma Scale Total: 15 Speech: Normal Motor strength normal: LUE, RUE, LLE, RLE Sensory: Normal - Psychological Associated symptoms: Normal affect, Normal mood - Skin Skin Temperature: Warm Skin Moisture: Dry Skin Color: Normal Course - Re-evaluation Re-evalutation: 04/20/17 16:49 Troponin is still elevated but not greater than the previous. Will consult with hospitalist at this time for possible versus transfer. 04/20/17 17:09 Troponin did not go up but is still slightly elevated. Consulted with the principal android developer, Dr. Mar. States that we could probably keep patient here. Recommends loading with Plavix. Recommends getting beta-isaac. Will consult with hospitalist for admission at this time . - Vital Signs Vital signs: Temp Pulse Resp BP Pulse Ox 97.8 F 96 16 136/98 H 100 04/20/17 11:44 04/20/17 11:44 04/20/17 17:00 04/20/17 16:31 04/20/17 17:00 - Laboratory Result Diagrams: 04/20/17 11:57 04/20/17 11:57 Laboratory results interpreted by me: 04/20/17 04/20/17 04/20/17 11:57 11:57 15:54 WBC 10.9 H Chloride 109 H Urine Blood SMALL H - EKG Interpretation by Mt EKG shows normal: Sinus rhythm, [place], Intervals, ST-T Waves Rhythm: PVC's Discharge - Discharge Clinical Impression: Elevated troponin Chest pain Qualifiers: Chest pain type: unspecified Qualified Code(s): R07.9 - Chest pain, unspecified Disposition: ADMITTED INPATIENT Admitting Provider: Hospitalist Unit Admitted: Tele[facility] - [facility] Referrals: FRED CANCINO JR, MD [Primary Care Provider] - Follow up as needed
[2017-04-20 13:44] LABS: INTERNATIONAL RATION (INR) 0.89; PROTHROMBIN TIME 12.7 SEC (11.4-15.4)
[2017-04-20 13:45] LABS: PARTIAL THROMBOPLASTIN TIME 32.6 SEC (23.5-35.8)
[2017-04-20 16:09] LABS: APPEARANCE,URINE CLEAR; BILIRUBIN,URINE NEGATIVE (NEGATIVE); COLOR,URINE STRAW; GLUCOSE, URINE NEGATIVE (NEGATIVE); KETONES,URINE NEGATIVE (NEGATIVE); LEUKOCYTE ESTERASE,URINE NEGATIVE (NEGATIVE); NITRITE,URINE NEGATIVE (NEGATIVE); PROTEIN,URINE NEGATIVE (NEGATIVE); URINE SPECIFIC GRAVITY 1.003; UROBILINOGEN,URINE NEGATIVE mg/dL (<2.0)
[2017-04-20] MEDS ORDERED: FENTANYL CITRATE INJ/PF 100 MCG/2 ML AMPUL IV ONE (16:25)
[2017-04-20] MEDS ORDERED: HEPARIN SOD (PORCINE) 1,000 UNIT/ML 10 ML VIAL IV PRN (16:34)
[2017-04-20] MEDS ORDERED: METOPROLOL TARTRATE 25 MG TABLET PO ONE (17:08)
[2017-04-20] MEDS ORDERED: METOPROLOL TARTRATE PF/INJ 5 MG/5 ML SDV IV ONE (17:08)
[2017-04-20] MEDS ORDERED: CLOPIDOGREL BISULFATE 300 MG TABLET PO ONE (17:08)
[2017-04-20] MEDS ORDERED: ONDANSETRON HCL INJ/PF 4 MG/2 ML SDV IV PRN (18:30)
[2017-04-20] MEDS ORDERED: MORPHINE SULFATE 10 MG/ML INJ IV PRN (18:30)
[2017-04-20] MEDS ORDERED: NITROGLYCERIN 0.4 MG/TAB 25 TAB/BOTTLE SL PRN (18:30)
--- NOTE | 2017-04-20 18:51 | PDOC H&P ---
History of Present Illness Admission Date/PCP: 04/20/17 17:15 FRED CANCINO JR, MD Patient complains of: chest pain History of Present Illness: DILIP TAVAREZ is a 51 year old male with history of MT/CAD s/p stent * 10 last in 2011, AAA, nicotene dependence who presents with 1 day history of chest pain that began last night. States that he develop diaphoresis, facial numbness/ tingling, and nausea. He took nitro with mild improvement in Chest pain. However , pain continued so decided to present to the ED for evaluation. States that pain is substernal and radiates to left side of chest. He has a history of AAA which states was diagnosed recently however no documentation of this. He currently smokes 1 PPD. Has a strong family history of smoking with MT in father at age 55 and MIs in 2 brothers both who were in their 50s. Last saw a consulting sme over 5 years ago. Currently only on Lisinopril. In ED, noted to have elevated trop without EKG changes. Case discussed with cardiology (Dr. Mar) who recommended Heparin GTT and Plavix loading. Second troponin trended down. Not currently having chest pain and feeling better. Will admit to hospitalist service for further evaluation. Past Medical History Cardiac Medical History: Reports: Atrial Fibrillation, Congestive Heart Failure , Myocardial Infarction, Hyperlipidema, Hypertension Pulmonary Medical History: Denies: Asthma, Bronchitis, Chronic Obstructive Pulmonary Disease (COPD), Pneumonia, Tuberculosis Neurological Medical History: Denies: Seizures Renal/ Medical History: Denies: End Stage Renal Disease GI Medical History: Denies: Cirrhosis, Gastroesophageal Reflux Disease Musculoskeltal Medical History: Denies: Arthritis Psychiatric Medical History: Denies: Bipolar Disorder, Depression Hematology: Denies: Anemia, Bleeding Tendencies Past Surgical History Past Surgical History: Reports: Cardiac Catheterization, Coronary Stent - * 10 per patient Social History Information Source: Patient Lives with: Family Smoking Status: Current Some Day Smoker Cigarettes Packs Per Day: 1 Frequency of Alcohol Use: None Hx Recreational Drug Use: No Drugs: None Hx Prescription Drug Abuse: No Family History Family History: CAD - Multiple family members with early onset coronary disease Parental Family History Reviewed: Yes Children Family History Reviewed: NA Sibling(s) Family History Reviewed.: Yes Medication/Allergy Home Medications: Aspirin [Aspirin 325 mg Tablet] 325 mg PO DAILY 04/20/17 Lisinopril [Prinivil] 40 mg PO DAILY 04/20/17 Allergies/Adverse Reactions: Penicillins Allergy (Verified 06/24/16 14:16) Physical Exam Vital Signs: Temp Pulse Resp BP Pulse Ox 97.8 F 96 13 113/86 H 96 04/20/17 11:44 04/20/17 11:44 04/20/17 18:22 04/20/17 18:22 04/20/17 18:22 General appearance: PRESENT: no acute distress, well-developed, well-nourished Head exam: PRESENT: atraumatic, normocephalic Mouth exam: PRESENT: moist Respiratory exam: PRESENT: unlabored. ABSENT: tachypnea Cardiovascular exam: PRESENT: RRR, +S1, +S2. ABSENT: systolic murmur, tachycardia GI/Abdominal exam: PRESENT: soft. ABSENT: tenderness Musculoskeletal exam: PRESENT: full ROM Neurological exam: PRESENT: alert, awake, CN II-XII grossly intact Results Impressions: Chest X-Ray 04/20/17 11:52 IMPRESSION: NO ACUTE RADIOGRAPHIC FINDING IN THE CHEST. Assessment & Plan - Diagnosis (1) NSTEMI (non-ST elevated myocardial infarction) Is this a current diagnosis for this admission?: Yes Plan: History of MT/CAD with multiple stents. Current smoker. Not on optimal medication management. Strong family history of CAD. - Presented with classic symptoms of chest pain that was relieved with nitro - EKG reviewed and no acute ST changes - Troponins: 1st 0.039 and repeat was 0.034 - Case discussed with cardiology, Dr. Mar who recommended Heparin GTT and Plavix Loading - To optomize HR and decreased preload, started on Metoprolol, received IV 5mg and started on 25mg PO BID - Continue home lisinopril 20mg daily - Stated Plavix 150mg daily, decreased ASA from 325mg to 81mg daily - Will keep Heparin GTT on overnight and if improved will discontinue - Cardiology consulted, appreciate recommendations - Will discuss with cards whether stress test would be appropriate or if patient needs repeat cardiac cath which would necessitate transfer - Smoking counseling provided - Will check lipid profile and HgA1c - Started on Atorvastatin 80mg PO qhs (2) AAA (abdominal aortic aneurysm) Qualifiers: Presence of rupture: without rupture Qualified Code(s): I71.4 - Abdominal aortic aneurysm, without rupture Is this a current diagnosis for this admission?: No Plan: Reported per patient - When acute NSTEMi issues resolve, consider repeat abdominal US to obtain baseline - Encouraged smoking cessation and good BP control (3) Nicotine dependence Qualifiers: Nicotine product type: cigarettes Is this a current diagnosis for this admission?: Yes Plan: Counseling given. Will discuss nicotene patch with patient (4) Hypertension Qualifiers: Hypertension type: essential hypertension Qualified Code(s): I10 - Essential (primary) hypertension Is this a current diagnosis for this admission?: Yes Plan: Per above - Time Time Spent: 50 to 70 Minutes Critical Time spent with patient: 15-24 minutes Smoking Cessation Education: 3 to 10 minutes Medications reviewed and adjusted accordingly: Yes Anticipated discharge: Home Within: within 72 hours
[2017-04-20 19:19] LABS: CHOLESTEROL 228.58 mg/dL (0-200); TRIGLYCERIDES 167 mg/dL (<150)
[2017-04-20 19:30] LABS: DIRECT LDL 188 mg/dL (<100)
[2017-04-20 19:36] LABS: VLDL CHOLESTEROL 33.4 mg/dL (10-31)
--- NOTE | 2017-04-20 20:24 | PDOC CONSULTATION ---
Consultation Consult Date: 04/20/17 Attending physician:: TYLER CRANE Consult reason:: Chest pain History of Present Illness Admission Date/PCP: 04/20/17 17:15 FRED CANCINO JR, MD Patient complains of: Chest pain History of Present Illness: DILIP TAVAREZ is a 51 year old male with history of AK/CAD s/p stent * 10 last in 2011, AAA, nicotene dependence who presents with 1 day history of chest pain that began last night. States that he develop diaphoresis, facial numbness/ tingling, and nausea. He took nitro with mild improvement in Chest pain. However , pain continued so decided to present to the ED for evaluation. States that pain is substernal and radiates to left side of chest. He has a history of AAA which states was diagnosed recently however no documentation of this. He currently smokes 1 PPD. Has a strong family history of smoking with AK in father at age 55 and MIs in 2 brothers both who were in their 50s. 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 Currently only on Lisinopril. In ED, noted to have elevated trop without EKG changes. Case discussed with cardiology (Dr. Mar) who recommended Heparin GTT and Plavix loading. Second troponin trended down. Not currently having chest pain and feeling better. Will admit to hospitalist service for further evaluation. This history was reviewed and confirmed. Patient did have a plain stress test last year at my office after being referred by [facility]. The plain stress test was indeterminate due to marked suboptimal heart rate response. He was supposed to have a 2D echocardiogram and also a sleep study but he never kept his follow-up appointment. Past Medical History Cardiac Medical History: Reports: Atrial Fibrillation, Congestive Heart Failure , Myocardial Infarction, Hyperlipidema, Hypertension Pulmonary Medical History: Denies: Asthma, Bronchitis, Chronic Obstructive Pulmonary Disease (COPD), Pneumonia, Tuberculosis Neurological Medical History: Denies: Seizures Renal/ Medical History: Denies: End Stage Renal Disease GI Medical History: Denies: Cirrhosis, Gastroesophageal Reflux Disease Musculoskeltal Medical History: Denies: Arthritis Psychiatric Medical History: Denies: Bipolar Disorder, Depression Hematology: Denies: Anemia, Bleeding Tendencies Past Surgical History Past Surgical History: Reports: Cardiac Catheterization, Coronary Stent - * 10 per patient Social History Information Source: Patient Lives with: Family Smoking Status: Current Some Day Smoker Cigarettes Packs Per Day: 1 Frequency of Alcohol Use: None Hx Recreational Drug Use: No Drugs: None Hx Prescription Drug Abuse: No - Advance Directive Resuscitation Status: Full Code Surrogate healthcare decision maker:: Patient's is the surrogate decision-maker Family History Family History: CAD - Multiple family members with early onset coronary disease Parental Family History Reviewed: Yes Children Family History Reviewed: Yes Sibling(s) Family History Reviewed.: Yes Medication/Allergy Home Medications: Aspirin [Aspirin 325 mg Tablet] 325 mg PO DAILY 04/20/17 Lisinopril [Prinivil] 40 mg PO DAILY 04/20/17 Allergies/Adverse Reactions: Penicillins Allergy (Verified 06/24/16 14:16) Review of Systems Review of Systems: GENERAL: well-nourished and in no acute distress. Alert and oriented x3 HEAD: Atraumatic, normocephalic. EYES: Pupils equal round and reactive to light, extraocular movements intact, sclera anicteric, conjunctiva are normal. ENT: TMs normal, nares patent, oropharynx clear without exudates. Moist mucous membranes. No oral ulcerations or bleeding gums noted NECK: supple without lymphadenopathy. Trachea is central. No cervical or axillary lymphadenopathy noted. Carotids are 2+, JVD WNL LUNGS: Respiration seems nonlabored, no significant accessory muscle action noted. Breath sounds clear to auscultation bilaterally and equal noted. No wheezes rales or rhonchi noted. No significant dullness noted on percussion. CHEST: Palpation of the chest wall shows no significant chest wall tenderness. No other significant abnormalities noted. 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 ABDOMEN: Soft, no significant tenderness appreciated, normoactive bowel sounds. No guarding, no rebound. No rigidity noted . No masses appreciated. EXTREMITIES: Pedal pulses are 1-2+, no calf tenderness noted. No clubbing or cyanosis.trace to 1+ pedal edema noted NEUROLOGICAL: Focused neurological exam showed no significant neurologic deficit. Normal speech, no focal weakness appreciated. PSYCH: Normal mood, normal affect. Judgment and insight within normal limits. SKIN: No significant ecchymosis, rash, ulcerations or signs of pruritus noted. MUSCULOSKELETAL EXAM: No significant joint swelling noted. Physical Exam Vital Signs: Temp Pulse Resp BP Pulse Ox 97.8 F 96 13 113/86 H 96 04/20/17 11:44 04/20/17 11:44 04/20/17 18:22 04/20/17 18:22 04/20/17 18:22 Results Laboratory Results: 04/20/17 18:40 Triglycerides 167 H Cholesterol 228.58 H LDL Cholesterol Direct 188 H VLDL Cholesterol 33.4 H HDL Cholesterol 38 L EKG Comments: Sinus rhythm, no acute ST-T wave changes noted. Occasional VPCs noted. Impressions: Chest X-Ray 04/20/17 11:52 IMPRESSION: NO ACUTE RADIOGRAPHIC FINDING IN THE CHEST. Assessment & Plan - Diagnosis (1) Chest pain Qualifiers: Chest pain type: unspecified Qualified Code(s): R07.9 - Chest pain, unspecified Is this a current diagnosis for this admission?: Yes (2) Elevated troponin Is this a current diagnosis for this admission?: Yes (3) Nicotine dependence Qualifiers: Nicotine product type: cigarettes Is this a current diagnosis for this admission?: Yes (4) Hypertension Qualifiers: Hypertension type: essential hypertension Qualified Code(s): I10 - Essential (primary) hypertension Is this a current diagnosis for this admission?: Yes (5) Dyslipidemia Is this a current diagnosis for this admission?: Yes (6) CAD (coronary artery disease) Qualifiers: Coronary Disease-Associated Artery/Lesion type: [place] artery [place] vs. transplanted heart: [place] heart Associated angina: with unspecified angina Qualified Code(s): I25.119 - Atherosclerotic heart disease of [place] coronary artery with unspecified angina pectoris Is this a current diagnosis for this admission?: Yes (7) ACS (acute coronary syndrome) Is this a current diagnosis for this admission?: Yes - Notes Notes: Chest pain: There is high probability that patient has unstable angina versus acute coronary syndrome. Currently however chest pain-free and without any acute ST-T wave changes. At this point agree with heparin aspirin Plavix beta isaac, high potency statin. Have added Ranexa to the regimen. Patient will benefit from a stress test if he can get stabilized. Coronary artery disease: Patient gives history of 5 prior myocardial infarction and stent stents. Last stents were placed at [facility] in [place], approximately 5 years ago. Acute coronary syndrome: This is the best diagnosis at this point. Management plans as noted in the chest pain. Elevated troponin I: This is minor elevation. Agree with cycling troponins. Nicotine dependence: Patient will benefit from abstinence from cigarette. Recommend nicotine patch. Hypertension: Recommend good control of blood pressure. Blood pressure goal is 135/85 in young patients with CAD. Beta-blockers, LASHA inhibitor/angiotensin receptor blockers are preferred. Dyslipidemia: Patient LDL is extremely elevated. Agree with Lipitor 80 mg. May consider adding Zetia if needed. - Time Time Spent: 30 to 50 Minutes - CODE STATUS was discussed, patient remains full code. Surrogate decision-maker patient's . Multiple medical problems were addressed. More than 50% of the time spent coordinating care, discussing management plans with involved caregivers. Management plans discussed with involved personnels. Medical decision making was of moderate to high complexity , patient's has multiple comorbidities. Medications reviewed and adjusted accordingly: Yes
[2017-04-20] MEDS ORDERED: INFLUENZA ADLT QUAD (36MOS+) 2017-18 VAC 0.5 ML SYR IM PRN (20:53)
[2017-04-20] MEDS ORDERED: LANSOPRAZOLE 30 MG TAB.RAP.DR PO ONE (21:00)
[2017-04-20] MEDS: RANOLAZINE 500 MG TAB.SR.12H PO SCH (21:25)
[2017-04-20] MEDS: ATORVASTATIN CALCIUM 80 MG TABLET PO SCH (21:25)
[2017-04-20] MEDS: GABAPENTIN 300 MG CAPSULE PO SCH (22:15)
[2017-04-21] MEDS ORDERED: NORMAL SALINE 1000 ML 1,000 ML IV ONE ×2 (01:00→03:30)
[2017-04-21 04:50] LABS: HEMATOCRIT 41.9 % (37.9-51.0); MEAN CORPUSCULAR HEMOGLOBIN 29.8 pg (27.0-33.4); MEAN CORPUSCULAR HGB CONC 33.5 g/dL (32.0-36.0); MEAN CORPUSCULAR VOLUME 89 fl (80-97); PLATELET COUNT 266 10^3/uL (150-450); RED BLOOD COUNT 4.71 10^6/uL (4.35-5.55); RED CELL DISTRIBUTION WIDTH 13.5 % (11.5-14.0); WHITE BLOOD COUNT 10.8 10^3/uL (4.0-10.5)
[2017-04-21] MEDS: LANSOPRAZOLE 30 MG TAB.RAP.DR PO SCH ×2 (05:48→17:06)
[2017-04-21] MEDS ORDERED: LISINOPRIL 40 MG PO SCH (10:00)
[2017-04-21] MEDS ORDERED: ENOXAPARIN SODIUM INJ 80 MG/0.8 ML DISP.SYRIN SUBCUT ONE ×2 (10:30→13:00)
[2017-04-21] MEDS: METOPROLOL TARTRATE 25 MG TABLET PO SCH ×2 (11:21→23:16)
[2017-04-21] MEDS: RANOLAZINE 500 MG TAB.SR.12H PO SCH ×2 (11:21→23:16)
[2017-04-21] MEDS: LISINOPRIL 10 MG TABLET PO SCH (11:21)
[2017-04-21] MEDS: ASPIRIN 81 MG TABLET, ENT COATED PO SCH (11:21)
[2017-04-21] MEDS: NICOTINE 21 MG/24 HR PATCH.TD24 TD SCH (11:22)
--- NOTE | 2017-04-21 13:27 | PDOC PROGRESS REPORT ---
Subjective Progress Note for:: 04/21/17 Subjective:: Patient seems to be doing better with gradual improvement. Pt is denying any chest arm or neck discomfort. Patient denying any PND, orthopnea. Patient denied any sustained palpitations, dizziness, syncope, near syncope. Patient denying any fever chills. Patient denying any other significant discomfort. Patient is maintaining sinus rhythm. Review of systems: Rest review of systems negative. Medications: Medications have been reviewed. Reason For Visit: NSTEMI, CHEST PAIN Physical Exam Vital Signs: Temp Pulse Resp BP Pulse Ox 98.7 F 70 18 107/67 98 04/21/17 11:18 04/21/17 11:18 04/21/17 11:18 04/21/17 11:18 04/21/17 11:18 Intake & Output 04/20/17 04/21/17 04/22/17 06:59 06:59 06:59 Intake Total 2112 Balance 2112 Weight 79 kg Exam: GENERAL: well-nourished and in no acute distress. Alert and oriented x3 HEAD: Atraumatic, normocephalic. EYES: Pupils equal round and reactive to light, extraocular movements intact, sclera anicteric, conjunctiva are normal. ENT: TMs normal, nares patent, oropharynx clear without exudates. Moist mucous membranes. No oral ulcerations or bleeding gums noted NECK: supple without lymphadenopathy. Trachea is central. No cervical or axillary lymphadenopathy noted. Carotids are 2+, JVD WNL LUNGS: Respiration seems nonlabored, no significant accessory muscle action noted. Breath sounds clear to auscultation bilaterally and equal noted. No wheezes rales or rhonchi noted. No significant dullness noted on percussion. CHEST: Palpation of the chest wall shows no significant chest wall tenderness. No other significant abnormalities noted. 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 ABDOMEN: Soft, no significant tenderness appreciated, normoactive bowel sounds. No guarding, no rebound. No rigidity noted . No masses appreciated. EXTREMITIES: Pedal pulses are 1-2+, no calf tenderness noted. No clubbing or cyanosis.trace to 1+ pedal edema noted NEUROLOGICAL: Focused neurological exam showed no significant neurologic deficit. Normal speech, no focal weakness appreciated. PSYCH: Normal mood, normal affect. Judgment and insight within normal limits. SKIN: No significant ecchymosis, rash, ulcerations or signs of pruritus noted. MUSCULOSKELETAL EXAM: No significant joint swelling noted. Results Laboratory Results: 04/21/17 03:48 04/20/17 04/21/17 18:40 03:48 WBC 10.8 H RBC 4.71 Hgb 14.0 D Hct 41.9 MCV 89 MCH 29.8 MCHC 33.5 RDW 13.5 Plt Count 266 Triglycerides 167 H Cholesterol 228.58 H LDL Cholesterol Direct 188 H VLDL Cholesterol 33.4 H HDL Cholesterol 38 L EKG Comments: Telemetry shows sinus rhythm without any sustained tacky or bradycardia arrhythmia. Impressions: Chest X-Ray 04/20/17 11:52 IMPRESSION: NO ACUTE RADIOGRAPHIC FINDING IN THE CHEST. Assessment & Plan - Diagnosis (1) Chest pain Qualifiers: Chest pain type: unspecified Qualified Code(s): R07.9 - Chest pain, unspecified Is this a current diagnosis for this admission?: Yes (2) Elevated troponin Is this a current diagnosis for this admission?: Yes (3) Nicotine dependence Qualifiers: Nicotine product type: cigarettes Is this a current diagnosis for this admission?: Yes (4) Hypertension Qualifiers: Hypertension type: essential hypertension Qualified Code(s): I10 - Essential (primary) hypertension Is this a current diagnosis for this admission?: Yes (5) Dyslipidemia Is this a current diagnosis for this admission?: Yes (6) ACS (acute coronary syndrome) Is this a current diagnosis for this admission?: Yes (7) CAD (coronary artery disease) Qualifiers: Coronary Disease-Associated Artery/Lesion type: [place] artery [place] vs. transplanted heart: [place] heart Associated angina: with unspecified angina Qualified Code(s): I25.119 - Atherosclerotic heart disease of [place] coronary artery with unspecified angina pectoris Is this a current diagnosis for this admission?: Yes - Notes Notes: Patient has history of prior myocardial infarction and stent placement. If there are any recurrent chest pain, or bumps in troponin I, consider transfer to tertiary care for heart catheterization. Otherwise patient will have stress test tomorrow. Chest pain: There is high probability that patient has unstable angina versus acute coronary syndrome. Currently however chest pain-free and without any acute ST-T wave changes. At this point agree with heparin aspirin Plavix beta isaac, hypotensive statin. Have added Ranexa to the regimen. Patient will benefit from a stress test if he can get stabilized. Consider switch from heparin to Lovenox as this might increase patient's mobility. Elevated troponin I: This is minor elevation. Agree with cycling troponins. Will order another troponin I for tomorrow morning. Acute coronary syndrome: Plan as per under chest pain Coronary artery disease: Plan as per in the chest pain Nicotine dependence: Patient will benefit from abstinence from cigarette. Recommend nicotine patch. Hypertension: Recommend good control of blood pressure. Blood pressure goal is 135/85 in young patients with CAD. Beta-blockers, LASHA inhibitor/angiotensin receptor blockers are preferred. Dyslipidemia: Patient LDL is extremely elevated. Agree with Lipitor 80 mg. May consider adding Zetia if needed. 2D echo was performed and need to be reviewed. Addendum: 2D echo was reviewed shows depressed LVEF, this makes him high risk patient. Low threshold for heart catheterization if recurrent chest pain, further decision after stress test results tomorrow - Time Time with patient: Greater than 35 minutes - CODE STATUS was discussed, patient remains full code. Surrogate decision-maker unchanged. Multiple medical problems were addressed. More than 50% of the time spent coordinating care, discussing management plans with involved caregivers. Management plans discussed with involved personnels. Medical decision making was of moderate to high complexity, patient's has multiple comorbidities. Medications reviewed and adjusted accordingly: Yes
--- NOTE | 2017-04-21 18:37 | PDOC PROGRESS REPORT ---
Subjective Progress Note for:: 04/21/17 Subjective:: Doing better today. Denies chest pain. Continues to have exertional SOB. Denies abdominal pain, NV. PO intake good. Willing to stay one additional day for stress test. Reason For Visit: NSTEMI, CHEST PAIN Physical Exam Vital Signs: Temp Pulse Resp BP Pulse Ox 97.9 F 68 16 93/56 L 98 04/21/17 15:49 04/21/17 15:49 04/21/17 15:49 04/21/17 15:49 04/21/17 15:49 Intake & Output 04/20/17 04/21/17 04/22/17 06:59 06:59 06:59 Intake Total 2112 738 Balance 2112 738 Weight 79 kg General appearance: PRESENT: no acute distress, well-developed, well-nourished Head exam: PRESENT: normocephalic Mouth exam: PRESENT: moist Respiratory exam: PRESENT: unlabored. ABSENT: tachypnea Cardiovascular exam: PRESENT: RRR, +S1, +S2. ABSENT: tachycardia GI/Abdominal exam: PRESENT: soft. ABSENT: tenderness Musculoskeletal exam: PRESENT: ambulatory Neurological exam: PRESENT: alert, awake, CN II-XII grossly intact Psychiatric exam: PRESENT: normal mood Results Laboratory Results: 04/21/17 03:48 04/20/17 04/21/17 18:40 03:48 WBC 10.8 H RBC 4.71 Hgb 14.0 D Hct 41.9 MCV 89 MCH 29.8 MCHC 33.5 RDW 13.5 Plt Count 266 Triglycerides 167 H Cholesterol 228.58 H LDL Cholesterol Direct 188 H VLDL Cholesterol 33.4 H HDL Cholesterol 38 L Impressions: Chest X-Ray 04/20/17 11:52 IMPRESSION: NO ACUTE RADIOGRAPHIC FINDING IN THE CHEST. Assessment & Plan - Diagnosis (1) NSTEMI (non-ST elevated myocardial infarction) Is this a current diagnosis for this admission?: Yes Plan: History of [place]/CAD with multiple stents. Current smoker. Not on optimal medication management. Strong family history of CAD. - Presented with classic symptoms of chest pain that was relieved with nitro - EKG reviewed and no acute ST changes - Troponins: 1st 0.039 and repeat was 0.034 - Received Heparin GTT and Plavix Loading at admission - Switched to Lovenox 1mg/kg BID - Continue Plavix 150mg daily - Continue ASA 81mg daily - Continue on Metoprolol 25mg PO BID and home lisinopril 20mg daily - Pharm stress test ordered for 04/22 - Cardiology consulted, appreciate recommendations - Smoking counseling provided, nicotene patch ordered - Lipids elevated, continue Atorvastatin 80mg PO qhs - HgA1c 5.4% (2) AAA (abdominal aortic aneurysm) Qualifiers: Presence of rupture: without rupture Qualified Code(s): I71.4 - Abdominal aortic aneurysm, without rupture Is this a current diagnosis for this admission?: No Plan: Reported per patient - When acute NSTEMi issues resolve, consider repeat abdominal US to obtain baseline - Encouraged smoking cessation and good BP control (3) Nicotine dependence Qualifiers: Nicotine product type: cigarettes Is this a current diagnosis for this admission?: Yes Plan: Counseling given. Started nicotene patch on 04/21 (4) Hypertension Qualifiers: Hypertension type: essential hypertension Qualified Code(s): I10 - Essential (primary) hypertension Is this a current diagnosis for this admission?: Yes Plan: Per above - Time Time Spent with patient: 15-24 minutes Anticipated discharge: Home Within: within 24 hours
--- NOTE | 2017-04-21 19:49 | XCELERA REPORT ---
[address] [address] Transthoracic Echocardiogram Report Name: DILIP TAVAREZ Age: 51 yrs Gender: Male : 1965 Patient Status: Inpatient Patient Location: [address] [place] [address] Study Date: 04/21/2017 09:58 AM Height: 67 in Weight: 182 lb BSA: 1.9 m2 Procedure: A complete two-dimensional transthoracic echocardiogram was performed (2D, M-mode, spectral and color flow Doppler). The study was technically adequate with some images being suboptimal in quality. Reason For Study: Chest pain Ordering Physician: YUKO CAMERON Performed By: Mariya Buckner Interpretation Summary LV EF is 35% Left ventricular systolic function is moderately reduced. There is mild concentric left ventricular hypertrophy. The left ventricle is mildly dilated. Doppler measurements suggest pseudonormalized left ventricular relaxation, which is associated with grade II/IV or mild to moderate diastolic dysfunction There is moderate global hypokinesis of the left ventricle. The right ventricular systolic function is normal. The right atrium is normal in size The left atrial size is normal. There is no mitral valve stenosis. There is a mild amount of mitral regurgitation There is no aortic valve stenosis No aortic regurgitation is present. No tricuspid regurgitation. Tricuspid regurgitation jet envelope not well defined to measure RV systolic pressure accurately. The aortic root is not well visualized but is probably normal size. The inferior vena cava appeared normal and decreased < 50% with respiration (RAP 10-15 mmHg) Minimal pericardial effusion. MMode/2D Measurements & Calculations RVDd: 2.5 cm LVIDd: 5.8 cm FS: 15.1 % Ao root diam: 3.2 cm IVSd: 1.3 cm LVIDs: 4.9 cm EDV(Teich): 163.7 ml LVPWd: 1.3 cm ESV(Teich): 112.1 ml Ao root area: 8.0 cm2 EF(Teich): 31.5 % Doppler Measurements & Calculations MV E max amber: MV dec slope: Ao V2 max: LV V1 max P.5 cm/sec 93.1 cm/sec 2.0 mmHg MV A max amber: 697.3 cm/sec2 Ao max PG: LV V1 max: 67.7 cm/sec MV dec time: 3.5 mmHg 70.5 cm/sec MV E/A: 1.5 0.15 sec PA V2 max: PI end-d amber: 53.5 cm/sec 146.6 cm/sec PA max P.1 mmHg Left Ventricle The left ventricle is mildly dilated. There is mild concentric left ventricular hypertrophy. Left ventricular systolic function is moderately reduced. LV EF is 35%. Doppler measurements suggest pseudonormalized left ventricular relaxation, which is associated with grade II/IV or mild to moderate diastolic dysfunction. There is moderate global hypokinesis of the left ventricle. Right Ventricle The right ventricle is grossly normal size. There is normal right ventricular wall thickness. The right ventricular systolic function is normal. Atria The right atrium is normal in size. The left atrial size is normal. Interarterial septum not well visualized and not well dopplered. Cannot comment on ASD/PFO presence. Mitral Valve The mitral valve leaflets are sclerotic, but show no functional abnormalities. There is no mitral valve stenosis. There is a mild amount of mitral regurgitation. Aortic Valve The aortic valve is grossly normal. There is no aortic valve stenosis. No aortic regurgitation is present. Tricuspid Valve The tricuspid valve is not well visualized secondary to technical limitations. There is no tricuspid stenosis. No tricuspid regurgitation. Tricuspid regurgitation jet envelope not well defined to measure RV systolic pressure accurately. Pulmonic Valve The pulmonic valve is not well visualized. Great Vessels The aortic root is not well visualized but is probably normal size. The inferior vena cava appeared normal and decreased < 50% with respiration (RAP 10-15 mmHg). Effusions Minimal pericardial effusion. : YUKO CAMERON > Yuko Cameron
[2017-04-21] MEDS: ATORVASTATIN CALCIUM 80 MG TABLET PO SCH (23:15)
[2017-04-21] MEDS: ENOXAPARIN SODIUM INJ 80 MG/0.8 ML DISP.SYRIN SUBCUT SCH (23:15)
[2017-04-21] MEDS: GABAPENTIN 300 MG CAPSULE PO SCH (23:15)
[2017-04-22] MEDS ORDERED: ACETAMINOPHEN 325 MG TABLET PO ONE (02:00)
[2017-04-22] MEDS: LANSOPRAZOLE 30 MG TAB.RAP.DR PO SCH ×2 (05:12→17:44)
[2017-04-22] MEDS ORDERED: CLOPIDOGREL BISULFATE 300 MG TABLET PO SCH (10:00)
[2017-04-22] MEDS ORDERED: REGADENOSON INJ 0.4 MG/5 ML DISP.SYRIN IV ONE (11:36)
[2017-04-22] MEDS ORDERED: AMINOPHYLLINE INJ/PF 250 MG/10 ML SDV IV ONE (11:36)
--- NOTE | 2017-04-22 11:45 | DRAGON STRESS TEST REPORT ---
INTRAVENOUS LEXISCAN CARDIOLITE STRESS TEST USING SINGLE PHOTON EMMISION COMPUTERIZED TOMOGRAPHIC. DATE OF PROCEDURE: April 22, 2017, INDICATION : Chest pain CARDIAC RISK FACTORS: Hypertension, dyslipidemia, tobacco abuse, known CAD with prior stent RESTING EKG: Sinus rhythm, LVH with minor secondary ST-T wave changes. STRESS EKG: No significant changes noted with LexiScan bolus REASON FOR TERMINATION: Protocol. PROCEDURE REPORT: Baseline heart rate 72 beats per minute with blood pressure of 107/76. Patient had no significant complaints. Heart rate at 2 minutes post bolus 83 with a blood pressure of 109/71. 3 minutes post bolus heart rate 81 with blood pressure of 98/71. No significant EKG changes were noted. Patient had no significant complaints during the procedure or postprocedure. Patient injected with Aminophyllin 75 mg at 3 minutes or later after Lexiscan bolus. CONCLUSIONS: Normal EKG and hemodynamic response to IV LexiScan. NUCLEAR DATA: At rest the patient was given 12.44 millicuries of technetium 99 sestamibi injected intravenously. As per protocol rest gated SPECT images were obtained. On day of stress test, the patient was given intravenous LexiScan at a dose of 0.4 mg in 5 mL intravenously, followed by flush with normal saline. Subsequently the stress dose of 34.1 millicuries of technetium 99 sestamibi was injected intravenously. As per protocol stress gated images were obtained. NUCLEAR INTERPRETATION: Both raw and processed data were used for interpretation. Visual, qualitative, computer-generated quantitative data was used. There was good myocardial uptake of technetium compound. Motion artifact and soft tissue attenuations were noted. Increased visceral uptake was noted. Predominantly severe fixed defect noted in the inferior wall however there is perfusion defect, transient, noted in the inferoapex, apex, inferior septum of the left ventricle. SDS score of 6. EKG gated imaging showed LV EF at 19%, rest and stress gated EF similar visually. There is severe diffuse hypokinesia with akinesia of the inferior wall. T. I D. ratio was 1.11. Lung heart ratio noted to be at upper normal limits 0.44. No significant extracardiac and abnormal radiotracer activities were noted. RV free wall uptake was noted to be WNL. IMPRESSION: Also refer to comments under nuclear interpretation. Also test results needs to be interpreted in the context of pretest probability. 1. There is perfusion defect, transient, noted in the inferoapex, apex, inferior septum of the left ventricle, consistent with ischemia with underlying severe fixed defect in the rest of the inferior wall. SDS score of 6. 2. Severe fixed defect noted in the inferior wall 3. EKG gated imaging shows left ventricular ejection fraction of approx. 19% with diffuse hypokinesia and akinesia of the inferior wall. 4. Clinical correlation requested as occasionally single vessel disease or balanced ischemia could be missed. In approximately 10% of the cases Lexiscan may not cause adequate vasodilatory stress. RECOMMENDATIONS: Aggressive risk factor modification and medical management. Low threshold for heart catheterization in view of severely depressed LVEF and SDS score of 6 if clinically indicated. Close cardiology follow-up is also recommended. Clinical correlation with echocardiogram derived ejection fraction. Inability to exercise by itself can lead to increased cardiovascular event risks. Consider cardiology consultation and or follow-up if clinically indicated. I am available for cardiology evaluation and consultation if requested by the primary school teacher, unless patient already has a optometric technologist. SIMONA
[2017-04-22] MEDS: RANOLAZINE 500 MG TAB.SR.12H PO SCH ×2 (11:48→21:48)
[2017-04-22] MEDS: ENOXAPARIN SODIUM INJ 80 MG/0.8 ML DISP.SYRIN SUBCUT SCH ×2 (11:48→21:49)
[2017-04-22] MEDS: LISINOPRIL 10 MG TABLET PO SCH (11:48)
[2017-04-22] MEDS: ASPIRIN 81 MG TABLET, ENT COATED PO SCH (11:49)
[2017-04-22] MEDS: METOPROLOL TARTRATE 25 MG TABLET PO SCH ×2 (11:49→21:49)
[2017-04-22] MEDS: NICOTINE 21 MG/24 HR PATCH.TD24 TD SCH (11:50)
[2017-04-22] MEDS ORDERED: CLOPIDOGREL BISULFATE 75 MG TABLET PO SCH (12:00)
--- NOTE | 2017-04-22 12:24 | PDOC PROGRESS REPORT ---
Subjective Progress Note for:: 04/22/17 Subjective:: Patient seems to be doing better with gradual improvement. Pt is denying any chest arm or neck discomfort. Patient denying any PND, orthopnea. Patient denied any sustained palpitations, dizziness, syncope, near syncope. Patient denying any fever chills. Patient denying any other significant discomfort. He has not ambulated much. 2D echo results reviewed. Nuclear stress test results were reviewed. Patient's daughter and son-in-law in the room. Patient is maintaining sinus rhythm. Review of systems: Rest review of systems negative. Medications: Medications have been reviewed. Reason For Visit: NSTEMI, CHEST PAIN Physical Exam Vital Signs: Temp Pulse Resp BP Pulse Ox 97.5 F 80 20 122/88 H 97 04/22/17 11:12 04/22/17 11:12 04/22/17 11:12 04/22/17 11:12 04/22/17 11:12 Intake & Output 04/21/17 04/22/17 04/23/17 06:59 06:59 06:59 Intake Total 2112 1236 Balance 2112 1236 Weight 79 kg 80 kg Exam: GENERAL: well-nourished and in no acute distress. Alert and oriented x3 HEAD: Atraumatic, normocephalic. EYES: Pupils equal round and reactive to light, extraocular movements intact, sclera anicteric, conjunctiva are normal. ENT: TMs normal, nares patent, oropharynx clear without exudates. Moist mucous membranes. No oral ulcerations or bleeding gums noted NECK: supple without lymphadenopathy. Trachea is central. No cervical or axillary lymphadenopathy noted. Carotids are 2+, JVD WNL LUNGS: Respiration seems nonlabored, no significant accessory muscle action noted. Breath sounds clear to auscultation bilaterally and equal noted. No wheezes rales or rhonchi noted. No significant dullness noted on percussion. CHEST: Palpation of the chest wall shows no significant chest wall tenderness. No other significant abnormalities noted. 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 ABDOMEN: Soft, no significant tenderness appreciated, normoactive bowel sounds. No guarding, no rebound. No rigidity noted . No masses appreciated. EXTREMITIES: Pedal pulses are 1-2+, no calf tenderness noted. No clubbing or cyanosis.trace to 1+ pedal edema noted NEUROLOGICAL: Focused neurological exam showed no significant neurologic deficit. Normal speech, no focal weakness appreciated. PSYCH: Normal mood, normal affect. Judgment and insight within normal limits. SKIN: No significant ecchymosis, rash, ulcerations or signs of pruritus noted. MUSCULOSKELETAL EXAM: No significant joint swelling noted. Results Laboratory Results: 04/21/17 03:48 EKG Comments: Telemetry shows sinus rhythm without any sustained tachycardia or bradycardia. Impressions: Chest X-Ray 04/20/17 11:52 IMPRESSION: NO ACUTE RADIOGRAPHIC FINDING IN THE CHEST. Assessment & Plan - Diagnosis (1) Chest pain Qualifiers: Chest pain type: unspecified Qualified Code(s): R07.9 - Chest pain, unspecified Is this a current diagnosis for this admission?: Yes (2) Elevated troponin Is this a current diagnosis for this admission?: Yes (3) Nicotine dependence Qualifiers: Nicotine product type: cigarettes Is this a current diagnosis for this admission?: Yes (4) Hypertension Qualifiers: Hypertension type: essential hypertension Qualified Code(s): I10 - Essential (primary) hypertension Is this a current diagnosis for this admission?: Yes (5) Dyslipidemia Is this a current diagnosis for this admission?: Yes (6) ACS (acute coronary syndrome) Is this a current diagnosis for this admission?: Yes (7) CAD (coronary artery disease) Qualifiers: Coronary Disease-Associated Artery/Lesion type: [place] artery [place] vs. transplanted heart: [place] heart Associated angina: with unspecified angina Qualified Code(s): I25.119 - Atherosclerotic heart disease of [place] coronary artery with unspecified angina pectoris Is this a current diagnosis for this admission?: Yes - Notes Notes: Stress test results were discussed with the patient. It showed predominantly a inferior wall scar but in addition patient also has ischemia involving the inferoapex, inferior septum with SDS score of 6. Also on 2D echo, no significant inferior wall akinesia noted and also does patient does not seem to have significantly abnormal Q waves, borderline Q waves were noted in the inferior wall therefore likelihood of viable myocardium being present in the inferior wall., These results were discussed with the patient and he was recommended to undergo a heart catheterization. Patient preferred to be transferred to [facility] as this is closest to his house. In this regard I called the transfer center at [facility] and subsequently talked with Dr. Owen who kindly accepted the patient for transfer for possible heart cath on Monday. Should patient become unstable, she requested that we give her a call again. Chest pain: There is high probability that patient has unstable angina versus acute coronary syndrome. Currently however chest pain-free and without any acute ST-T wave changes. Continue with Lovenox, aspirin, Plavix, beta siaac, high potency statin. Continue Ranexa to the regimen. Elevated troponin I: This is minor elevation. Stress test however positive for ischemia as well as fixed defect. Acute coronary syndrome: Plan as per under chest pain Coronary artery disease: Plan as per in the chest pain Nicotine dependence: Patient will benefit from abstinence from cigarette. Recommend nicotine patch. Hypertension: Recommend good control of blood pressure. Blood pressure goal is 135/85 in young patients with CAD. Beta-blockers, LASHA inhibitor/angiotensin receptor blockers are preferred. Dyslipidemia: Patient LDL is extremely elevated. Agree with Lipitor 80 mg. May consider adding Zetia if needed. 2D echo was performed and results were reviewed. Nuclear stress test was performed and results reviewed. Please see separate dictation. - Time Time with patient: Greater than 35 minutes - CODE STATUS was discussed, patient remains full code. Surrogate decision-maker unchanged. Multiple medical problems were addressed. More than 50% of the time spent coordinating care, discussing management plans with involved caregivers. Management plans discussed with involved personnels. Medical decision making was of moderate to high complexity, patient's has multiple comorbidities. Medications reviewed and adjusted accordingly: Yes
--- NOTE | 2017-04-22 15:44 | PDOC PROGRESS REPORT ---
Subjective Progress Note for:: 04/22/17 Subjective:: Patient admitted with chest pain as well as elevated troponin. He does have a prior history of coronary artery disease. He had a stress test done which showed a predominantly inferior wall scar as well as ischemia involving the inferior apex inferior septum areas. He has been seen by Dr. Mar and at this time recommendation is to go for a heart catheterization at [facility]. Patient has been accepted by Dr. Owen and he will be transferred likely in 1-2 days. Patient meanwhile denies any specific chest pain however is pretty anxious as he has some family issues that present on his mind. Reason For Visit: NSTEMI, CHEST PAIN Physical Exam Vital Signs: Temp Pulse Resp BP Pulse Ox 97.5 F 80 20 122/88 H 97 04/22/17 11:12 04/22/17 11:12 04/22/17 11:12 04/22/17 11:12 04/22/17 11:12 Intake & Output 04/21/17 04/22/17 04/23/17 06:59 06:59 06:59 Intake Total 2112 1236 Balance 2112 1236 Weight 79 kg 80 kg General appearance: PRESENT: no acute distress, well-developed, well-nourished Head exam: PRESENT: atraumatic, normocephalic Eye exam: PRESENT: conjunctiva pink, EOMI, PERRLA. ABSENT: scleral icterus Ear exam: PRESENT: normal external ear exam Mouth exam: PRESENT: moist, tongue midline Neck exam: ABSENT: carotid bruit, JVD, lymphadenopathy, thyromegaly Respiratory exam: PRESENT: clear to auscultation jono. ABSENT: rales, rhonchi, wheezes Cardiovascular exam: PRESENT: RRR. ABSENT: diastolic murmur, rubs, systolic murmur Pulses: PRESENT: normal dorsalis pedis pul Vascular exam: PRESENT: normal capillary refill GI/Abdominal exam: PRESENT: normal bowel sounds, soft. ABSENT: distended, guarding, mass, organolmegaly, rebound, tenderness Rectal exam: PRESENT: deferred Extremities exam: PRESENT: full ROM. ABSENT: calf tenderness, clubbing, pedal edema Neurological exam: PRESENT: alert, awake, oriented to person, oriented to place , oriented to time, oriented to situation, CN II-XII grossly intact. ABSENT: motor sensory deficit Psychiatric exam: PRESENT: appropriate affect, normal mood. ABSENT: homicidal ideation, suicidal ideation Skin exam: PRESENT: dry, intact, warm. ABSENT: cyanosis, rash Results Laboratory Results: 04/21/17 03:48 Impressions: Chest X-Ray 04/20/17 11:52 IMPRESSION: NO ACUTE RADIOGRAPHIC FINDING IN THE CHEST. Assessment & Plan - Diagnosis (1) ACS (acute coronary syndrome) Is this a current diagnosis for this admission?: Yes (2) CAD (coronary artery disease) Qualifiers: Coronary Disease-Associated Artery/Lesion type: [place] artery [place] vs. transplanted heart: [place] heart Associated angina: with unspecified angina Qualified Code(s): I25.119 - Atherosclerotic heart disease of [place] coronary artery with unspecified angina pectoris Is this a current diagnosis for this admission?: Yes (3) Chest pain Qualifiers: Chest pain type: unspecified Qualified Code(s): R07.9 - Chest pain, unspecified Is this a current diagnosis for this admission?: Yes (4) Elevated troponin Is this a current diagnosis for this admission?: Yes (5) Hypertension Qualifiers: Hypertension type: essential hypertension Qualified Code(s): I10 - Essential (primary) hypertension Is this a current diagnosis for this admission?: Yes - Time Time Spent with patient: 15-24 minutes Anticipated discharge: [facility] Within: within 48 hours - Inpatient Certification Based on my medical assessment, after consideration of the patient's comorbidities, presenting symptoms, or acuity I expect that the services needed warrant INPATIENT care.: Yes I certify that my determination is in accordance with my understanding of Medicare's requirements for reasonable and necessary INPATIENT services [42 CFR 412.3e].: Yes Medical Necessity: Need Close Monitoring Due to Risk of Patient Decompensation - Plan Summary Plan Summary: Coronary artery disease with elevated troponin and suggestion of viable myocardium on stress test. Plan is for transfer to [facility] #2 chest pain secondary to above #3 hypertension essential. We will adjust medications for optimal blood pressure control #4 dyslipidemia currently on atorvastatin #5 anxiety we will try low-dose benzodiazepine #6 acute coronary syndrome plans as above patient is currently chest pain-free
[2017-04-22] MEDS: ALPRAZOLAM 0.5 MG TABLET PO PRN ×2 (15:56→23:27)
[2017-04-22] MEDS: GABAPENTIN 300 MG CAPSULE PO SCH (21:48)
[2017-04-22] MEDS: ATORVASTATIN CALCIUM 80 MG TABLET PO SCH (21:49)
[2017-04-23] MEDS: LANSOPRAZOLE 30 MG TAB.RAP.DR PO SCH (05:12)
[2017-04-23 08:00] VITALS: BP 114/82
[2017-04-23] MEDS: ASPIRIN 81 MG TABLET, ENT COATED PO SCH (11:00)
[2017-04-23] MEDS: METOPROLOL TARTRATE 25 MG TABLET PO SCH (11:00)
[2017-04-23] MEDS: RANOLAZINE 500 MG TAB.SR.12H PO SCH (11:00)
[2017-04-23] MEDS: LISINOPRIL 10 MG TABLET PO SCH (11:00)
[2017-04-23] MEDS: ENOXAPARIN SODIUM INJ 80 MG/0.8 ML DISP.SYRIN SUBCUT SCH (11:01)
[2017-04-23] MEDS: NICOTINE 21 MG/24 HR PATCH.TD24 TD SCH (11:04)
--- NOTE | 2017-04-23 11:23 | PDOC DISCHARGE SUMMARY ---
General - Admit/Disc Date/PCP Admission Date/Primary Care Provider: 04/20/17 17:15 LIANNA TRAN MD Discharge Date: 04/23/17 - Discharge Diagnosis (1) ACS (acute coronary syndrome) Is this a current diagnosis for this admission?: Yes (2) CAD (coronary artery disease) Is this a current diagnosis for this admission?: Yes (3) Chest pain Is this a current diagnosis for this admission?: Yes (4) Elevated troponin Is this a current diagnosis for this admission?: Yes (5) Hypertension Is this a current diagnosis for this admission?: Yes (6) NSTEMI (non-ST elevated myocardial infarction) Is this a current diagnosis for this admission?: Yes (7) Nicotine dependence Is this a current diagnosis for this admission?: Yes - Additional Information Resuscitation Status: Full Code Discharge Diet: Tube Feeding (Comments) Discharge Activity: Balance Activity w/Rest Home Medications: Alprazolam [Xanax 0.5 mg Tablet] 0.5 mg PO Q6HP PRN tablet 04/23/17 Aspirin [Ecotrin 81 mg EC Tablet] 81 mg PO DAILY tabec 04/23/17 Atorvastatin Calcium [Lipitor 80 mg Tablet] 80 mg PO QHS tablet 04/23/17 Clopidogrel Bisulfate [Plavix 75 mg Tablet] 75 mg PO NOON tablet 04/23/17 Enoxaparin Sodium [Lovenox Inj 80 mg/0.8 ml Disp.syrin] 80 mg SUBCUT Q12 disp.syrin 04/23/17 Gabapentin [Neurontin 300 mg Capsule] 600 mg PO QHS capsule 04/23/17 Lansoprazole [Prevacid 30 mg Odt Tablet] 30 mg PO BID@0600,1700 tab.rap.dr 06/07 Lisinopril [Prinivil] 20 mg PO DAILY #0 04/23/17 Metoprolol Tartrate [Lopressor 25 mg Tablet] 25 mg PO Q12 tablet 04/23/17 Nicotine [Nicoderm 21 mg/24 Hr Transderm Patch] 1 each TD DAILY patch.td24 06/07 Nitroglycerin [Nitrostat 0.4 mg (1/150 Gr) Tabs 25/Bottle] 1 tab SL Q5MP PRN bottle 04/23/17 Ranolazine [Ranexa 500 mg Tab.sr] 500 mg PO Q12 tab.sr.12h 04/23/17 History of Present Illness Patient complains of: Patient admitted with difficulty breathing, chest pain and shortness of breath was also found to have elevated troponin. Denied any dizziness or syncope on admission. History of Present Illness: DILIP TAVAREZ is a 51 year old male Hospital Course Hospital Course: He was admitted to telemetry floor and was monitored with serial cardiac enzymes with troponin peaking at 0.039. Patient subsequently had an echocardiogram done that revealed an ejection fraction of 35% with moderate global hypokinesis of the left ventricle and mild concentric left ventricular hypertrophy. Cardiolite stress test revealed predominantly severe fixed defect in the inferior wall with a perfusion defect, transient, noted in the inferior apex apex inferior septal of the left ventricle. Patient was also evaluated by Dr. Mar, room service waiter/waitress who helped to coordinate his care. After evaluating patient and the results of his stress test and echo it is felt that patient will benefit from a cardiac catheterization at the minimum and so he is being transferred to [facility] under the care of Dr. Owen for further management. Patient has remained stable otherwise throughout his hospital stay. He does have some anxiety apparently related to some social issues but he has improved with the addition of benzodiazepine to his regimen. Patient is being transferred in stable condition. Physical Exam Vital Signs: Temp Pulse Resp BP Pulse Ox 97.4 F 66 16 114/82 95 04/23/17 07:23 04/23/17 07:23 04/23/17 07:23 04/23/17 07:23 04/23/17 07:23 Intake & Output 04/22/17 04/23/17 04/24/17 06:59 06:59 06:59 Intake Total 1236 582 Balance 1236 582 Weight 80 kg General appearance: PRESENT: no acute distress, well-developed, well-nourished, other - Young healthy looking gentleman Head exam: PRESENT: atraumatic, normocephalic Eye exam: PRESENT: conjunctiva pink, EOMI, PERRLA. ABSENT: scleral icterus Ear exam: PRESENT: normal external ear exam Mouth exam: PRESENT: moist, tongue midline Neck exam: ABSENT: carotid bruit, JVD, lymphadenopathy, thyromegaly Respiratory exam: PRESENT: clear to auscultation jono. ABSENT: rales, rhonchi, wheezes Cardiovascular exam: PRESENT: RRR. ABSENT: diastolic murmur, rubs, systolic murmur Pulses: PRESENT: normal dorsalis pedis pul Vascular exam: PRESENT: normal capillary refill GI/Abdominal exam: PRESENT: normal bowel sounds, soft. ABSENT: distended, guarding, mass, organolmegaly, rebound, tenderness Rectal exam: PRESENT: deferred Extremities exam: PRESENT: full ROM. ABSENT: calf tenderness, clubbing, pedal edema Neurological exam: PRESENT: alert, awake, oriented to person, oriented to place , oriented to time, oriented to situation, CN II-XII grossly intact. ABSENT: motor sensory deficit Psychiatric exam: PRESENT: anxious, appropriate affect, normal mood. ABSENT: homicidal ideation, suicidal ideation Skin exam: PRESENT: dry, intact, warm. ABSENT: cyanosis, rash Results Laboratory Results: 04/21/17 03:48 Impressions: Chest X-Ray 04/20/17 11:52 IMPRESSION: NO ACUTE RADIOGRAPHIC FINDING IN THE CHEST. Qualifiers - * PATEINT BEING DISCHARGED WITH ANY OF THE FOLLOWING DIAGNOSIS?: VT - NSTEMI VT Pt being discharged on Aspirin therapy?: Yes VT Pt being discharged on Statins?: Yes VT Pt discharged ACEI/ARBS?: Yes Plan Discharge Plan: Transfer to [facility] for further care Time Spent: Greater than 30 Minutes
--- NOTE | 2017-04-23 14:28 | PDOC PROGRESS REPORT ---
Subjective Progress Note for:: 04/23/17 Subjective:: Patient seen on morning rounds. Patient claims he noted some chest pain on ambulation last night. He is doing fine at rest. Patient denying any PND, orthopnea. Patient denied any sustained palpitations, dizziness, syncope, near syncope. Patient denying any fever chills. Patient denying any other significant discomfort. 2D echo results reviewed. Nuclear stress test results were reviewed. Patient's daughter and son-in-law in the room. Patient is maintaining sinus rhythm. Review of systems: Rest review of systems negative. Medications: Medications have been reviewed. Reason For Visit: NSTEMI, CHEST PAIN Physical Exam Vital Signs: Temp Pulse Resp BP Pulse Ox 97.4 F 66 16 114/82 95 04/23/17 07:23 04/23/17 07:23 04/23/17 07:23 04/23/17 07:23 04/23/17 07:23 Intake & Output 04/22/17 04/23/17 04/24/17 06:59 06:59 06:59 Intake Total 1236 582 180 Balance 1236 582 180 Weight 80 kg Exam: GENERAL: well-nourished and in no acute distress. Alert and oriented x3 HEAD: Atraumatic, normocephalic. EYES: Pupils equal round and reactive to light, extraocular movements intact, sclera anicteric, conjunctiva are normal. ENT: TMs normal, nares patent, oropharynx clear without exudates. Moist mucous membranes. No oral ulcerations or bleeding gums noted NECK: supple without lymphadenopathy. Trachea is central. No cervical or axillary lymphadenopathy noted. Carotids are 2+, JVD WNL LUNGS: Respiration seems nonlabored, no significant accessory muscle action noted. Breath sounds clear to auscultation bilaterally and equal noted. No wheezes rales or rhonchi noted. No significant dullness noted on percussion. CHEST: Palpation of the chest wall shows no significant chest wall tenderness. No other significant abnormalities noted. 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 ABDOMEN: Soft, no significant tenderness appreciated, normoactive bowel sounds. No guarding, no rebound. No rigidity noted . No masses appreciated. EXTREMITIES: Pedal pulses are 1-2+, no calf tenderness noted. No clubbing or cyanosis.trace to 1+ pedal edema noted NEUROLOGICAL: Focused neurological exam showed no significant neurologic deficit. Normal speech, no focal weakness appreciated. PSYCH: Normal mood, normal affect. Judgment and insight within normal limits. SKIN: No significant ecchymosis, skin is noted to be warm. MUSCULOSKELETAL EXAM: No significant acute joint swelling noted. Results Laboratory Results: 04/21/17 03:48 EKG Comments: Telemetry shows sinus rhythm without sustained tachycardia or bradycardia Impressions: Chest X-Ray 04/20/17 11:52 IMPRESSION: NO ACUTE RADIOGRAPHIC FINDING IN THE CHEST. Assessment & Plan - Diagnosis (1) Chest pain Qualifiers: Chest pain type: unspecified Qualified Code(s): R07.9 - Chest pain, unspecified Is this a current diagnosis for this admission?: Yes (2) Elevated troponin Is this a current diagnosis for this admission?: Yes (3) Nicotine dependence Qualifiers: Nicotine product type: cigarettes Is this a current diagnosis for this admission?: Yes (4) Hypertension Qualifiers: Hypertension type: essential hypertension Qualified Code(s): I10 - Essential (primary) hypertension Is this a current diagnosis for this admission?: Yes (5) Dyslipidemia Is this a current diagnosis for this admission?: Yes (6) ACS (acute coronary syndrome) Is this a current diagnosis for this admission?: Yes (7) CAD (coronary artery disease) Qualifiers: Coronary Disease-Associated Artery/Lesion type: [place] artery [place] vs. transplanted heart: [place] heart Associated angina: with unspecified angina Qualified Code(s): I25.119 - Atherosclerotic heart disease of [place] coronary artery with unspecified angina pectoris Is this a current diagnosis for this admission?: Yes - Notes Notes: Chest pain: This was felt to be related to unstable angina/acute coronary syndrome. Nuclear stress test was positive with high risk features. Since patient has low LVEF, patient is being referred for cardiac catheterization. [facility] regimen [facility]. Elevated troponin I: This is minor elevation. Stress test however positive for ischemia as well as fixed defect. Acute coronary syndrome: Plan as per under chest pain Coronary artery disease: Plan as per in the chest pain Nicotine dependence: Patient will benefit from abstinence from cigarette. Recommend nicotine patch. Hypertension: Recommend good control of blood pressure. Blood pressure goal is 135/85 in young patients with CAD. Beta-blockers, LASHA inhibitor/angiotensin receptor blockers are preferred. Dyslipidemia: Patient LDL is extremely elevated. Agree with Lipitor 80 mg. May consider adding Zetia if needed. 2D echo was performed and results were reviewed. Nuclear stress test was performed and results reviewed. Please see separate dictation. - Time Time with patient: 15-25 minutes - CODE STATUS was discussed, patient remains full code. Surrogate decision-maker unchanged. Multiple medical problems were addressed. More than 50% of the time spent coordinating care, discussing management plans with involved caregivers. Management plans discussed with involved personnels. Medical decision making was of moderate to high complexity , patient's has multiple comorbidities. Medications reviewed and adjusted accordingly: Yes
== END 2017-04-23 12:25 | disposition short-term general hospital (02) | DRG 282 ==
LOC: ER 11:34 → EH 17:15 → 5 19:23
PROVIDERS: ADMIT Student in an Organized Health Care Education/Training Program; ATTEND Student in an Organized Health Care Education/Training Program
DX: I21.4 Non-ST elevation (NSTEMI) myocardial infarction (principal); I25.119 Atherosclerotic heart disease of native coronary artery with unspecified angina pectoris; I48.91 Unspecified atrial fibrillation; I71.4 Abdominal aortic aneurysm, without rupture; I11.0 Hypertensive heart disease with heart failure; F17.210 Nicotine dependence, cigarettes, uncomplicated; E78.5 Hyperlipidemia, unspecified; I50.9 Heart failure, unspecified; I25.10 Atherosclerotic heart disease of native coronary artery without angina pectoris; I25.2 Old myocardial infarction; Z95.5 Presence of coronary angioplasty implant and graft; Z88.0 Allergy status to penicillin; Z82.49 Family history of ischemic heart disease and other diseases of the circulatory system
CPT/HCPCS: 36415; 71045; 78452; 80053; 80061; 81001; 82550; 82553; 83036; 84484; 85025; 85027; 85610; 85730; 93005; 93010; 93017; 93306; 96365; 96376; 99291; A9500; J0280; J1644; J1650; J2785; J3010; J3490; J7030; Q9969